=== PATIENT | female | born 1950 | race Caucasian/White ===

== ENCOUNTER 2020-06-29 11:11 | Outpatient (REF) | payer MEDICARE, BC, SELFPAY ==
[2020-06-29 14:11] LABS: MANUAL DIFF FLAG NO
[2020-06-29 14:21] LABS: Basophils Percent Auto 0.3 % (0-2); Eosinophils Absolute Auto 0.1 X10*3/uL (0.0-0.4); Eosinophils Percent Auto 1.3 % (0-4); Hematocrit 42.2 % (37-47); Hemoglobin 14.1 g/dl (12.0-16.0); Imm Gran Abs Auto 0.02 X10*3/uL (0.00-0.03); Imm Gran Pct Auto 0.3 % (0.0-0.4); Lymphocytes Absolute Auto 1.8 X10*3/uL (1.2-4.9); Lymphocytes Percent Auto 29.7 % (20-40); Mean Corpuscular HGB Conc 33.4 g/dl (31.0-35.0); Mean Corpuscular Hemoglobin 33.6 pg (27.0-33.0); Mean Corpuscular Volume 100.5 fL (80-98); Mean Platelet Volume 10.5 fL (9.4-12.3); Monocytes Absolute Auto 0.5 X10*3/uL (0.1-1.2); Monocytes Percent Auto 8.1 % (2-11); Neutrophils Absolute Auto 3.6 X10*3/uL (2.0-8.3); Neutrophils Percent Auto 60.3 % (45-73); Platelet Count 224 X10*3/uL (160-400); Red Cell Distribution Width 11.7 % (11.0-16.0)
[2020-06-29 14:36] LABS: Alanine Aminotransferase 18 U/L (0-31); Albumin Level 4.2 g/dL (3.5-5.0); Alkaline Phosphatase 95 U/L (39-117); Anion Gap 10 (12-20); Aspartate Amino Transferase 16 U/L (5-31); Bilirubin Total 0.5 mg/dL (0.0-1.0); Blood Urea Nitrogen 18 mg/dL (9-16); Carbon Dioxide 32 mmol/L (22-29); Chloride 103 mmol/L (96-108); Cholesterol 210 mg/dL; Estimated Glomerular Filt Rate > 60; Glucose Fasting 87 mg/dL (60-99); HDL Cholesterol 58 mg/dL; LDL Cholesterol Calculated 122 mg/dl; Potassium 4.2 mmol/l (3.3-5.1); Sodium 141 mmol/L (135-145); Total Protein 6.5 g/dL (6.5-8.0); Triglycerides 154 mg/dL
[2020-06-29 14:50] LABS: Vitamin D 25-OH Total 42.1 ng/mL (>30)
== END 2020-06-29 11:12 | disposition home or self-care (01) ==
LOC: HO.10HDL 11:11
PROVIDERS: Visit Provider Internal Medicine
DX: E78.00 Pure hypercholesterolemia, unspecified (principal); I10 Essential (primary) hypertension; M85.80 Other specified disorders of bone density and structure, unspecified site
CPT/HCPCS: 36415; 80053; 80061; 82306; 85025

== ENCOUNTER 2021-02-23 08:54 | Outpatient (REF) | payer MEDICARE, BC, SELFPAY ==
[2021-02-23 10:09] LABS: MANUAL DIFF FLAG NO
[2021-02-23 10:19] LABS: Basophils Percent Auto 0.4 % (0-2); Eosinophils Absolute Auto 0.1 X10*3/uL (0.0-0.4); Eosinophils Percent Auto 1.6 % (0-4); Hematocrit 41.5 % (37-47); Hemoglobin 13.8 g/dl (12.0-16.0); Imm Gran Abs Auto 0.01 X10*3/uL (0.00-0.03); Imm Gran Pct Auto 0.2 % (0.0-0.4); Lymphocytes Percent Auto 36.6 % (20-40); Mean Corpuscular HGB Conc 33.3 g/dl (31.0-35.0); Mean Corpuscular Hemoglobin 33.1 pg (27.0-33.0); Mean Corpuscular Volume 99.5 fL (80-98); Mean Platelet Volume 10.3 fL (9.4-12.3); Monocytes Absolute Auto 0.4 X10*3/uL (0.1-1.2); Monocytes Percent Auto 7.7 % (2-11); Neutrophils Absolute Auto 2.9 X10*3/uL (2.0-8.3); Neutrophils Percent Auto 53.5 % (45-73); Platelet Count 188 X10*3/uL (160-400); Red Blood Count 4.17 X10*6/uL (4.20-5.50); Red Cell Distribution Width 11.7 % (11.0-16.0); White Blood Count 5.5 X10*3/uL (4.8-10.8)
[2021-02-23 10:34] LABS: Alanine Aminotransferase 15 U/L (0-31); Alkaline Phosphatase 97 U/L (39-117); Anion Gap 13 (12-20); Aspartate Amino Transferase 13 U/L (5-31); Bilirubin Total 0.7 mg/dL (0.0-1.0); Blood Urea Nitrogen 19 mg/dL (9-16); Calcium 9.2 mg/dL (8.4-10.2); Carbon Dioxide 26 mmol/L (22-29); Chloride 106 mmol/L (96-108); Estimated Glomerular Filt Rate > 60; Glucose Random 86 mg/dL (60-115); Potassium 4.3 mmol/L (3.3-5.1); Sodium 141 mmol/L (135-145); Total Protein 6.3 g/dL (6.5-8.0)
[2021-02-23 10:50] LABS: Vitamin D 25-OH Total 36.2 ng/mL (>30)
== END 2021-02-23 08:55 | disposition home or self-care (01) ==
LOC: HO.LAB 08:54
PROVIDERS: PCP Internal Medicine; Visit Provider Internal Medicine
DX: I10 Essential (primary) hypertension (principal); E78.00 Pure hypercholesterolemia, unspecified; E55.9 Vitamin D deficiency, unspecified
CPT/HCPCS: 36415; 80053; 82306; 85025

== ENCOUNTER 2021-10-07 08:31 | Outpatient (REF) | payer MEDICARE, BC, SELFPAY ==
[2021-10-07 10:48] LABS: Alanine Aminotransferase 12 U/L (0-31); Alkaline Phosphatase 91 U/L (39-117); Anion Gap 11 (12-20); Aspartate Amino Transferase 14 U/L (5-31); Bilirubin Total 0.5 mg/dL (0.0-1.0); Blood Urea Nitrogen 22 mg/dL (9-16); Calcium 9.4 mg/dL (8.4-10.2); Carbon Dioxide 30 mmol/L (22-29); Chloride 106 mmol/L (96-108); Cholesterol 175 mg/dL; Estimated Glomerular Filt Rate 59; Glucose Fasting 92 mg/dL (60-99); HDL Cholesterol 56 mg/dL; LDL Cholesterol Calculated 96 mg/dl; Potassium 4.5 mmol/L (3.3-5.1); Sodium 142 mmol/L (135-145); Total Protein 6.4 g/dL (6.5-8.0); Triglycerides 118 mg/dL
== END 2021-10-07 08:32 | disposition home or self-care (01) ==
LOC: HO.10HDL 08:31
PROVIDERS: Visit Provider Internal Medicine
DX: I10 Essential (primary) hypertension (principal); E78.00 Pure hypercholesterolemia, unspecified
CPT/HCPCS: 36415; 80053; 80061

== ENCOUNTER 2022-01-01 02:11 | Inpatient (IN) | payer MEDICARE, BC, SELFPAY ==
[2022-01-01] VITALS (10 sets, daily range): BP systolic 105–162; BP diastolic 41–60; PULSE 52–75; RESP 14–22; TEMP 36.6–37.9; O2SAT 92–97; BMI 28.4
--- NOTE | ~2022-01-01 | CT_ITS ---
EXAMINATION: CT ABDOMEN AND PELVIS WITHOUT CONTRAST CLINICAL INFORMATION: 71-year-old female with left-sided flank pain. History of kidney stones. COMPARISON: Abdominal ultrasound November 13, 2014 TECHNIQUE: Multidetector volumetric imaging was performed from the superior aspect of the liver through the pubic symphysis. Sagittal and coronal reformatted images were obtained on the technologist's workstation. This CT examination was performed using dose optimization techniques as appropriate, variously including the following: *Automated exposure control *Adjustment of mA and/or kV according to patient size (this includes techniques or standardized protocols for targeted exams where dose is matched to indication/reason for exam; i.e. extremities or head) *Use of iterative reconstruction technique DLP: 591 mGy-cm FINDINGS: Visualized lung bases demonstrate mild dependent atelectasis. The liver demonstrates normal size, contour and attenuation. An approximately 1 cm gallstone is noted within an otherwise unremarkable appearing gallbladder. The pancreas, spleen and adrenal glands are unremarkable. There is moderate to severe left-sided hydroureteronephrosis secondary to a 9 mm calculus within the distal left ureter. There is asymmetric perinephric stranding of the left kidney. A few other nonobstructing calculi of the left kidney are noted, the largest of these is an approximately 1 cm lower pole calculus which demonstrates an attenuation value of approximately 500 and is located approximately 13 cm from the posterior skin surface. A few nonobstructing calculi are noted within the lower pole of the right kidney, the largest of these measuring approximately 5 mm. A right extrarenal pelvis is again noted. Scarring again noted involving the upper pole of the right kidney. Normal caliber loops of small and large bowel. Moderate colonic diverticulosis without CT evidence to suggest active diverticulitis. Normal appendix. Normal caliber abdominal aorta demonstrating moderate atherosclerotic disease. No gross retroperitoneal lymphadenopathy. The bladder is normal in appearance. Unremarkable CT appearance of the uterus. No gross free pelvic fluid. Moderate diffuse degenerative changes of the spine. Abnormal sclerotic appearance of the right femoral head and proximal portion of the right femur, nonspecific. CT/CT abdomen pelvis wo con IMPRESSION: Moderate to severe left-sided hydroureteronephrosis secondary to a 9 mm calculus within the distal left ureter. Fleischner guidelines were followed.
[2022-01-01 03:55] LABS: Appearance Urine HAZY; Color Urine YELLOW; Glucose Urine UA NEG (NEG); Leukocyte Esterase Urine 2+ (NEG); Nitrite Urine NEG (NEG); Specific Gravity - Urine 1.025 (1.005-1.025); UACC Culture Trigger YES; Urine Blood 2+ (NEG); Urine Ketones NEG (NEG); Urine Protein TRACE MG/DL (NEG-TRACE)
[2022-01-01 04:31] LABS: Bacteria Urine 4+ /LPF; Mucus Urine 2+ /LPF; Squamous Epithelial Cell Urine 1+ /LPF; WBC Urine 50-75 /HPF (0-4)
[2022-01-01 06:24] LABS: Hemoglobin 13.5 g/dl (12.0-16.0); Mean Corpuscular HGB Conc 33.8 g/dl (31.0-35.0); Mean Corpuscular Hemoglobin 32.6 pg (27.0-33.0); Mean Corpuscular Volume 96.6 fL (80.0-98.0); Mean Platelet Volume 9.6 fL (9.4-12.3); Platelet Count 177 X10*3/uL (160-400); Red Blood Count 4.14 X10*6/uL (4.20-5.50); Red Cell Distribution Width 11.6 % (11.0-16.0); White Blood Count 16.9 X10*3/uL (4.8-10.8)
[2022-01-01 06:46] LABS: Alanine Aminotransferase 11 U/L (0-31); Albumin Level 4.2 g/dL (3.5-5.0); Alkaline Phosphatase 109 U/L (39-117); Anion Gap 15 (12-20); Aspartate Amino Transferase 16 U/L (5-31); Bilirubin Total 0.7 mg/dL (0.0-1.0); Blood Urea Nitrogen 14 mg/dL (9-16); Calcium 9.5 mg/dL (8.4-10.2); Carbon Dioxide 21 mmol/L (22-29); Chloride 101 mmol/L (96-108); Creatinine Clr Calc Pharmacy 50.1; Estimated Glomerular Filt Rate > 60; Glucose Random 131 mg/dL (60-115); Potassium 4.3 mmol/L (3.3-5.1); Sodium 133 mmol/L (135-145)
--- NOTE | 2022-01-01 06:58 | ED.ABDPAIN ---
HPI - Abdominal Pain General Chief Complaint: Abdominal Pain Stated Complaint: Kidney Stone Time Seen by Provider: 01/01/22 06:58 Source: patient and family ( spouse) Mode of arrival: ambulatory Limitations: no limitations History of Present Illness HPI narrative: 71 years old female history of kidney stones came in for evaluation of left flank pain. Left flank pain started since yesterday pain is constant described as sharp aching to the left flank area radiates down to the left groin area, pain is severe 10/10, associated with nausea and vomiting but no fever, no dysuria or urinary frequency. patient had similar pain in the past when she had kidney stone many years ago. Patient required surgical intervention for stone removal In the past. Related Data Allergies Allergy/AdvReac Type Severity Reaction Status Date / Time ibuprofen Allergy Unknown Verified 01/09/14 00:00 Review of Systems Review of Systems All other systems are reviewed and are negative Constitutional: Reports as per HPI and Reports no additional constitutional complaints Eyes: Reports as per HPI and Reports no additional eye complaints Reports system reviewed and no additional complaints, except as documented Cardiovascular: Reports as per HPI and Reports no additional cardiovascular complaints Respiratory: Reports as per HPI and Reports no additional respiratory complaints Gastrointestinal: Reports as per HPI and Reports no additional gastrointestinal complaints Genitourinary: Reports no additional female genitourinary complaints Musculoskeletal: Reports no additional musculoskeletal complaints Skin/Breast: Reports system reviewed and no additional complaints, except as docu Psychiatric: Reports no additional psychiatric complaints Endocrine: Reports no additional endocrine complaints Hematologic/Lymphatic: Reports no additional hematologic/lymphatic complaints Allergic/Immunologic: Reports no additional allergic/immunologic complaints Reports system reviewed and no additional complaints, except as documented and Reports Abnormal speech present. [facility] Social History Social History Advance Directives: No Advance Directives Information Provided: No Physical Exam ED Vital Signs: Vital Signs - 24 hr 01/01/22 03:34 01/01/22 06:59 01/01/22 07:48 Temperature 97.8 F Pulse Rate 54 53 Respiratory Rate 22 H 14 16 Blood Pressure 146/47 H 141/60 H Pulse Oximetry 96 96 01/01/22 09:42 01/01/22 10:46 Temperature Pulse Rate 68 Respiratory Rate 16 14 Blood Pressure 139/60 Pulse Oximetry 92 BMI result Body Mass Index 28.4 vital signs have been reviewed as appeared to be correct. Blood pressure normal. Heart rate normal. Respiration rate normal. Temperature normal. Oxygen saturation normal. Appearance: Alert. Oriented X3. No acute distress. Head: Normal external exam. Normocephalic. Atraumatic. No Velasquez signs noted. No raccoon eyes noted Eyes: PERRLA. EOMI. Conjunctiva and sclera normal. Eyelids normal. ENT: TM's Normal. Pharynx normal. Uvula midline. Moist mucous membranes. No trismus noted. No drooling noted. No muffled voice noted. Neck: Normal inspection. Neck supple. FROM. No adenopathy. Thyroid Normal. No meningeal signs. No neck mass noted. CVS: Normal heart rate and rhythm. Heart sound normal. No murmurs noted. Pulses normal throughout. Respiratory: No respiratory distress. Painless inspiration. Breath sounds normal. No wheezes/rales/rhonchi noted. Chest nontender. No accessory muscle usage noted or decreased air movement noted. Abdomen: Soft and nontender. Bowel sounds normal in all 4 quadrants. No distention noted. No organomegaly noted. No visible injury noted. Back: Left CVA tenderness. Full range of motion noted. Skin: Skin warm and dry. Normal skin color. Normal skin turgor. No rashes/lesions/lacerations noted. Extremities: No lower extremity edema. Extremities exhibit normal range of motion. Extremities nontender. Neuro: Oriented X 3. Cranial nerve exam: II-XII are grossly intact No motor deficit. No sensory deficit. Reflexes normal. Course Course Course Narrative: Assessment and plan. 71-year-old female came in with left flank pain, physical exam and CT is consistent with left pyelonephritis and a 9 mm distal ureteric stone, patient met criteria for SIRS but no evidence of severe sepsis or septic shock. Patient received ceftriaxone/ IV fluid / analgesia/consult to Dr. Medina who recommended to admit the patient to the medical service and he will consult as an inpatient. patient incidentally found to be positive for COVID. MDM - Abdominal Pain Medical Records Attestation: I reviewed the patient's medical records. Lab Data Attestation: I reviewed the patient's lab results. Result diagrams: 01/01/22 06:15 01/01/22 06:15 Labs: Lab Results 01/01/22 01/01/22 01/01/22 Range/Units 03:46 06:15 06:15 WBC 16.9 H (4.8-10.8) X10*3/uL RBC 4.14 L (4.20-5.50) X10*6/uL Hgb 13.5 (12.0-16.0) g/dl Hct 40.0 (37.0-47.0) % MCV 96.6 (80.0-98.0) fL MCH 32.6 (27.0-33.0) pg MCHC 33.8 (31.0-35.0) g/dl RDW 11.6 (11.0-16.0) % Plt Count 177 (160-400) X10*3/uL MPV 9.6 (9.4-12.3) fL Absolute Nucleated RBC 0.000 (0.0-0.012) X10*3/uL Nucleated RBC % (auto) 0.0 (0.0-0.2) /100WBC Sodium 133 L (135-145) mmol/L Potassium 4.3 (3.3-5.1) mmol/L Chloride 101 (96-108) mmol/L Carbon Dioxide 21 L (22-29) mmol/L Anion Gap 15 (12-20) BUN 14 (9-16) mg/dL Creatinine 0.86 (0.5-1.4) mg/dL Estim Creat Clear Calc 50.1 Estimated GFR > 60 Random Glucose 131 H (60-115) mg/dL Lactic Acid (0.5-2.0) mmol/L Calcium 9.5 (8.4-10.2) mg/dL Total Bilirubin 0.7 (0.0-1.0) mg/dL AST 16 (5-31) U/L ALT 11 (0-31) U/L Alkaline Phosphatase 109 (39-117) U/L Total Protein 7.0 (6.5-8.0) g/dL Albumin 4.2 (3.5-5.0) g/dL Urine Color YELLOW Urine Appearance HAZY Urine pH 6.0 (5.0-8.0) Ur Specific [place] 1.025 (1.005-1.025) Urine Protein TRACE (NEG-TRACE) MG/DL Urine Glucose (UA) NEG (NEG) MG/DL Urine Ketones NEG (NEG) MG/DL Urine Blood 2+ H (NEG) Urine Nitrite NEG (NEG) Ur Leukocyte Esterase 2+ H (NEG) Urine RBC 5-9 H (0) /HPF Urine WBC 50-75 H (0-4) /HPF Ur Squamous Epith Cells 1+ /LPF Urine Bacteria 4+ /LPF Urine Mucus 2+ /LPF COVID-19 ([facility]) (Negative) COVID-19 Clin Com 01/01/22 01/01/22 Range/Units 09:24 10:50 WBC (4.8-10.8) X10*3/uL RBC (4.20-5.50) X10*6/uL Hgb (12.0-16.0) g/dl Hct (37.0-47.0) % MCV (80.0-98.0) fL MCH (27.0-33.0) pg MCHC (31.0-35.0) g/dl RDW (11.0-16.0) % Plt Count (160-400) X10*3/uL MPV (9.4-12.3) fL Absolute Nucleated RBC (0.0-0.012) X10*3/uL Nucleated RBC % (auto) (0.0-0.2) /100WBC Sodium (135-145) mmol/L Potassium (3.3-5.1) mmol/L Chloride (96-108) mmol/L Carbon Dioxide (22-29) mmol/L Anion Gap (12-20) BUN (9-16) mg/dL Creatinine (0.5-1.4) mg/dL Estim Creat Clear Calc Estimated GFR Random Glucose (60-115) mg/dL Lactic Acid 0.9 (0.5-2.0) mmol/L Calcium (8.4-10.2) mg/dL Total Bilirubin (0.0-1.0) mg/dL AST (5-31) U/L ALT (0-31) U/L Alkaline Phosphatase (39-117) U/L Total Protein (6.5-8.0) g/dL Albumin (3.5-5.0) g/dL Urine Color Urine Appearance Urine pH (5.0-8.0) Ur Specific [place] (1.005-1.025) Urine Protein (NEG-TRACE) MG/DL Urine Glucose (UA) (NEG) MG/DL Urine Ketones (NEG) MG/DL Urine Blood (NEG) Urine Nitrite (NEG) Ur Leukocyte Esterase (NEG) Urine RBC (0) /HPF Urine WBC (0-4) /HPF Ur Squamous Epith Cells /LPF Urine Bacteria /LPF Urine Mucus /LPF COVID-19 ([place]) Positive A (Negative) COVID-19 Clin Com See Note Imaging Data CT scan - abdomen: Attestation: I personally reviewed and interpreted this imaging study as follows: Radiologist's impression: Moderate to severe left-sided hydroureteronephrosis secondary to a 9 mm calculus within the distal left ureter. Discharge Plan Discharge Clinical Impression: Pyelonephritis of left kidney, Calculus of distal left ureter, COVID-19 virus infection Patient Disposition: Admitted As Inpatient
[2022-01-01] MEDS: Morphine Sulfate 2 MG/ML CARTRIDGE IVPUSH ×2 (07:48→14:17)
[2022-01-01] MEDS: 0.9 % Sodium Chloride 1,000 ML 999 ML IV (07:48)
[2022-01-01] MEDS: ondansetron HCL 4 MG/2 ML VIAL IVPUSH ×2 (07:48→14:17)
[2022-01-01 09:39] LABS: Lactic Acid 0.9 mmol/L (0.5-2.0)
[2022-01-01] MEDS: HYDROmorphone HCl 1 MG/ML SYRINGE IVPUSH ×3 (09:42→22:11)
[2022-01-01 11:01] LABS: COVID-19 Test Positive (Negative); IDNOW Serial# 16C4AD1C
[2022-01-01 11:38] LABS: C Reactive Protein 0.71 mg/dL (< or = 0.50); Lactate Dehydrogenase 298 U/L (122-220)
--- NOTE | 2022-01-01 11:52 | PC.NURSE ---
Patient is alert and orientedx3, pleasant and cooperative. Patient is afebrile. VSS. Lugs are clear. Patient denies discomfort with urination, however complains of left flank pain that resembles pain she had in the past d/t kidney stone about 1 year ago. Patient had nausea this morning which resolved. Patient reports last BM 12/31/2021. Pain in left flank 3/10 at present-at tolerable level. Skin is intact. Patient ambulates independently-gait is steady. Patient is NPO at present-awaiting consult with surgeon.
[2022-01-01 11:57] LABS: Ferritin 178 ng/mL (10-250)
[2022-01-01 11:59] LABS: Procalcitonin 0.02 ng/mL
--- NOTE | 2022-01-01 13:46 | P.HPHOSP_ITS ---
History of Present Illness Date of Service: 01/01/22 Chief Complaint: L flank pain Ms Nieves is a 71 year-old woman with nephrolithiasis, hypertension, and hyperlipidemia who presents with the sudden-onset of severe left flank pain radiating to the groin associated with nausea and vomiting that started yesterday morning. She came to the ED and was found to have leukocytosis and tachypnea, along with pyuria, microscopic hematuria, and bacteruria. CT showed [id number] hydroureteronephrosis on the left associated with a 9 mm distal ureteral stone. Lactate was 0.9 and serum creatinine was 0.86. She was given IV morphine, IV hydromorphone, and IV ceftriaxone. She passed a small stone 3 months ago after an episode of left-sided renal colic. Routine pre-admission Covid-19 [facility] was positive. She denies fever, rigors, congestion, sore throat, cough, or dyspnea. No known exposures. She had the 2-dose primary series and 2 boosters of mRNA Covid-19 vaccine. Review of Systems Review of Systems: Yes all other systems are reviewed and are negative [facility] Medical History Dyslipidemia Hypertension Nephrolith Family History (Updated 01/01/22 @ 13:51 by Eliezer Sandy MD) Father Chronic kidney disease Surgical History (Updated 01/01/22 @ 13:50 by Eliezer Sandy MD) History of removal of ureteral stent History of stapedectomy Social History Advance Directives: No Advance Directives Information Provided: No Meds Allergies Allergy/AdvReac Type Severity Reaction Status Date / Time ibuprofen Allergy Unknown Verified 01/09/14 00:00 Active Medications: Current Medications Ceftriaxone Sodium 1 gm/ (Sodium Chloride) 50 mls @ 100 mls/hr IV Q24H [facility] Sodium Chloride (Ns) 1,000 mls @ 100 mls/hr IVCONT .Q10H [facility] Morphine Sulfate (Morphine Sulfate 2 Mg/Ml Cartridge) 2 mg IVPUSH Q2H PRN; Protocol PRN Reason: severe pain Non-Formulary Medication (Simvastatin) 1 tab PO BEDTIME [facility] Pharmacy Consult (Consult Rx Perform Med Rec) 1 each MISCELLANE ONCE PRN PRN Reason: Consult order Home Medications Medication Instructions Recorded Confirmed Last Taken Type losartan 50 mg tablet 1 tab PO BID 01/01/22 01/01/22 Unknown History oxycodone 5 mg tablet 1 tab PO QID PRN 01/01/22 01/01/22 Unknown History simvastatin 20 mg tablet 1 tab PO BEDTIME 01/01/22 01/01/22 Unknown History Physical Exam Vital Signs and Narrative: Vital Signs: Last Vital Signs Temp 97.8 F 01/01/22 03:34 Pulse 68 01/01/22 10:46 Resp 14 01/01/22 10:46 BP 139/60 01/01/22 10:46 Pulse Ox 92 01/01/22 10:46 BMI result Body Mass Index 28.4 Gen: uncomfortable-appearing HEENT: sclera anicteric, moist mucus membranes Neck: supple Lungs: clear to auscultation bilaterally Heart: regular rate and rhythm, no murmurs Abd: soft, non-tender, non-distended : L CVA tenderness Ext: no edema Skin: warm/well-perfused Neuro: alert and oriented x3, no focal findings Psych: appropriate affect Results Labs CBC and Chem 7: 01/01/22 06:15 01/01/22 06:15 Labs: Laboratory Results - last 24 hr 01/01/22 01/01/22 01/01/22 03:46 06:15 06:15 MCV 96.6 MCH 32.6 MCHC 33.8 RDW 11.6 Plt Count 177 MPV 9.6 Absolute Nucleated RBC 0.000 Nucleated RBC % (auto) 0.0 Anion Gap 15 Estim Creat Clear Calc 50.1 Estimated GFR > 60 Random Glucose 131 H Lactic Acid Calcium 9.5 Ferritin 178 Total Bilirubin 0.7 AST 16 ALT 11 Alkaline Phosphatase 109 Lactate Dehydrogenase 298 H C-Reactive Protein 0.71 H Total Protein 7.0 Albumin 4.2 Procalcitonin Urine Color YELLOW Urine Appearance HAZY Urine pH 6.0 Ur Specific [place] 1.025 Urine Protein TRACE Urine Glucose (UA) NEG Urine Ketones NEG Urine Blood 2+ H Urine Nitrite NEG Ur Leukocyte Esterase 2+ H Urine RBC 5-9 H Urine WBC 50-75 H Ur Squamous Epith Cells 1+ Urine Bacteria 4+ Urine Mucus 2+ COVID-19 ([facility]) COVID-19 Clin Com 01/01/22 01/01/22 01/01/22 06:15 09:24 10:50 MCV MCH MCHC RDW Plt Count MPV Absolute Nucleated RBC Nucleated RBC % (auto) Anion Gap Estim Creat Clear Calc Estimated GFR Random Glucose Lactic Acid 0.9 Calcium Ferritin Total Bilirubin AST ALT Alkaline Phosphatase Lactate Dehydrogenase C-Reactive Protein Total Protein Albumin Procalcitonin 0.02 Urine Color Urine Appearance Urine pH Ur Specific [place] Urine Protein Urine Glucose (UA) Urine Ketones Urine Blood Urine Nitrite Ur Leukocyte Esterase Urine RBC Urine WBC Ur Squamous Epith Cells Urine Bacteria Urine Mucus COVID-19 ([place]) Positive A COVID-19 Clin Com See Note Imaging Radiologist's Impressions: Impressions Abdomen/Pelvis CT 01/01/22 09:07 IMPRESSION: Moderate to severe left-sided hydroureteronephrosis secondary to a 9 mm calculus within the distal left ureter. Fleischner guidelines were followed. Assessment and Plan (1) Pyelonephritis of left kidney: Status: Acute (2) Calculus of distal left ureter: Status: Acute (3) COVID-19 virus infection: Status: Acute Plan 71yo F with nephrolithiasis, HTN, and HLD presenting with 1 day of L-sided renal colic and found to have pyelonephritis and hydroureteronephrosis associated with a distal left ureteral calculus. # obstructive ureteral stone # pyelonephritis - admit to M/S, give IV fluid hydration, IV morphine, IV ondansetron, Urology consult, ceftriaxone IV, follow UCx # HTN - hold losartan # HLD - continue statin # Covid-19 infection - incidental, inflammatory markers low, fully vaccinated + boosted - ID consult - isolation precautions # VTE ppx - SCDs # code - full I anticipate that the patient will stay at least 2 midnights in hospital due to the above reasons. It is not reasonable or safe to care for them in a less acute setting. Quality Stroke Does the patient have a stroke diagnosis?: No VTE Prior VTE?: No VTE Risk Level:: Medical - moderate - high VTE Device Contraindication: N/A - Device Ordered VTE Drug Contraindication: N/A - Med Ordered
[2022-01-01] MEDS: 0.9 % Sodium Chloride 1,000 ML 100 ML IVCONT (14:17)
[2022-01-01] MEDS: Enoxaparin Sodium 40 MG/0.4 ML SYRINGE SUBCUT (14:17)
--- NOTE | 2022-01-01 14:28 | PC.NURSE ---
CALLED WITH UPDATE. PT MEDICATED FOR INCREASED LEFT FLANK PAIN. SKIN PWD. NAUSEA RISING BUT NO VOMITING. ABLE TO TRANSFER TO COMMODE INDPENDENTLY.
--- NOTE | 2022-01-01 14:37 | P.CNUR_ITS ---
History of Present Illness Consult details Consult date: 01/01/22 Narrative: Megan is a very pleasant female. Admitted to hospital with left-sided flank pain. Associated elevated white count imaging with distal left ureteric stone and mild hydronephrosis Creatinine 0.7 WBC 18 Discussed imaging results. Stones bilateral. Will need intervention with ureteroscopy and laser lithotripsy. Admitted to Medicine for antibiotics and 24-36 hour Review of Systems Constitutional: Constitutional: Reports as per HPI and Reports no additional constitutional complaints Cardiovascular: Cardiovascular: Reports as per HPI and Reports no additional cardiovascular complaints Respiratory: Respiratory: Reports as per HPI and Reports no additional respiratory complaints Gastrointestinal: Gastrointestinal: Reports as per HPI and Reports no additional gastrointestinal complaints Genitourinary: Genitourinary: Reports as per HPI Musculoskeletal: Musculoskeletal: Reports no additional musculoskeletal compl aints and Reports as per HPI Neurologic: Reports system reviewed and no additional complaints, except as documented and Reports as per HPI PMFSH Past Medical History Medical History Dyslipidemia Hypertension Nephrolith Family History Family History (Updated 01/01/22 @ 13:51 by Eliezer Sandy MD) Father Chronic kidney disease Surgical History Surgical History (Updated 01/01/22 @ 13:50 by Eliezer Sandy MD) History of removal of ureteral stent History of stapedectomy Social History Social History Advance Directives: No Advance Directives Information Provided: No service: No Current occupational status: retired Meds Allergies Allergy/AdvReac Type Severity Reaction Status Date / Time ibuprofen Allergy Unknown Verified 01/09/14 00:00 Active Medications: Current Medications Acetaminophen (Acetaminophen 325 Mg Tablet) 650 mg PO Q6H PRN PRN Reason: Pain, Mild (Pain Scale 1-3) Atorvastatin Calcium (Atorvastatin Calcium 10 Mg Tablet) 10 mg PO BEDTIME [facility] Enoxaparin Sodium (Enoxaparin Sodium 40 Mg/0.4 Ml Syringe) 40 mg SUBCUT Q24H [facility] Last Admin: 01/01/22 14:17 Dose: 40 mg Documented by: Ceftriaxone Sodium 1 gm/ (Sodium Chloride) 50 mls @ 100 mls/hr IV Q24H [facility] Sodium Chloride (Ns) 1,000 mls @ 100 mls/hr IVCONT .Q10H [facility] Last Admin: 01/01/22 14:17 Dose: 100 mls/hr Documented by: Morphine Sulfate (Morphine Sulfate 2 Mg/Ml Cartridge) 2 mg IVPUSH Q2H PRN; Protocol PRN Reason: severe pain Ondansetron HCl (Ondansetron Hcl 4 Mg/2 Ml Vial) 4 mg IVPUSH Q8H PRN PRN Reason: Nausea and Vomiting Last Admin: 01/01/22 14:17 Dose: 4 mg Documented by: Pharmacy Consult (Consult Rx Perform Med Rec) 1 each MISCELLANE ONCE PRN PRN Reason: Consult order Sodium Chloride (0.9 % Sodium Chloride Flush 3 Ml Syringe) 3 ml IVFLUSH QSHIFT [facility] Last Admin: 01/01/22 14:18 Dose: Not Given Documented by: Home Medications Medication Instructions Recorded Confirmed Last Taken Type losartan 50 mg tablet 1 tab PO BID 01/01/22 01/01/22 Unknown History oxycodone 5 mg tablet 1 tab PO QID PRN 01/01/22 01/01/22 Unknown History simvastatin 20 mg tablet 1 tab PO BEDTIME 01/01/22 01/01/22 Unknown History Physical Exam Vital Signs: Vital Signs: Last Vital Signs Temp 99.4 F 01/01/22 13:48 Pulse 75 01/01/22 13:48 Resp 18 01/01/22 13:48 BP 162/57 H 01/01/22 13:48 Pulse Ox 94 01/01/22 13:48 BMI result Body Mass Index 28.4 Const: General: cooperative, healthy appearing, comfortable and no acute distress Orientation/consciousness: patient oriented x3 HEENT: Face and sinus: Yes normal facial exam Mouth: moist mucous membranes Neck: Neck: Yes normal visual inspection, Yes full ROM and Yes trachea midline Chest: Chest palpation & inspection: normal inspection of the chest Resp: Effort & Inspection: normal respiratory effort, able to speak in complete sentences and no respiratory distress GI: Inspection: Yes normal to inspection Back/Spine/Pelvis: Cervical Spine: normal cervical lordosis Thoracic/Lumbar Spine: thoracic and lumbar spine normal to inspection Skin: General skin exam: no rashes or lesions noted Neuro: General: patient oriented x3, tone normal and moves all extremities Extrem: General: Yes normal to inspection and Yes capillary refill normal Results Labs Result diagrams: 01/03/22 04:39 01/03/22 04:39 Labs: Abnormal lab results 01/01/22 01/01/22 01/01/22 Range/Units 03:46 06:15 06:15 WBC 16.9 H (4.8-10.8) X10*3/uL RBC 4.14 L (4.20-5.50) X10*6/uL Sodium 133 L (135-145) mmol/L Carbon Dioxide 21 L (22-29) mmol/L Random Glucose 131 H (60-115) mg/dL Lactate Dehydrogenase 298 H (122-220) U/L C-Reactive Protein 0.71 H (< or = 0.50) mg/dL Urine Blood 2+ H (NEG) Ur Leukocyte Esterase 2+ H (NEG) Urine RBC 5-9 H (0) /HPF Urine WBC 50-75 H (0-4) /HPF COVID-19 ([facility]) (Negative) 01/01/22 Range/Units 10:50 WBC (4.8-10.8) X10*3/uL RBC (4.20-5.50) X10*6/uL Sodium (135-145) mmol/L Carbon Dioxide (22-29) mmol/L Random Glucose (60-115) mg/dL Lactate Dehydrogenase (122-220) U/L C-Reactive Protein (< or = 0.50) mg/dL Urine Blood (NEG) Ur Leukocyte Esterase (NEG) Urine RBC (0) /HPF Urine WBC (0-4) /HPF COVID-19 ([place]) Positive A (Negative) Short CBC 01/01/22 Range/Units 06:15 WBC 16.9 H (4.8-10.8) X10*3/uL Hgb 13.5 (12.0-16.0) g/dl Hct 40.0 (37.0-47.0) % Plt Count 177 (160-400) X10*3/uL BMP 01/01/22 06:15 Sodium 133 L Potassium 4.3 Chloride 101 Carbon Dioxide 21 L BUN 14 Creatinine 0.86 Calcium 9.5 Liver Function 01/01/22 Range/Units 06:15 Total Bilirubin 0.7 (0.0-1.0) mg/dL AST 16 (5-31) U/L ALT 11 (0-31) U/L Alkaline Phosphatase 109 (39-117) U/L Albumin 4.2 (3.5-5.0) g/dL Urine 01/01/22 Range/Units 03:46 Urine Color YELLOW Urine Appearance HAZY Urine pH 6.0 (5.0-8.0) Ur Specific [place] 1.025 (1.005-1.025) Urine Protein TRACE (NEG-TRACE) MG/DL Urine Glucose (UA) NEG (NEG) MG/DL All other labs normal. Assessment and Plan (1) Pyelonephritis of left kidney: Status: Acute (2) Calculus of distal left ureter: Status: Acute Plan Ureteroscopy We discussed the nature of the decision and reasonable alternatives for performing the above surgery. Interventions include chemical dissolution, ESWL, ureteroscopy with laser lithotripsy and stent placement, PCNL. Options such as medical therapy were discussed. The relative uncertainties and benefits related to each alternate procedure were adequately discussed. General surgical risks including, but not limited to, pa in, bleeding, infection, myocardial infarction, pulmonary embolus, deep vein thrombosis and cerebrovascular accident which may result in further hospitalization were discussed. Full disclosure of the procedure as well as all major risks, benefits and complications were discussed including but not limited to damage to the urethra, bladder and kidney infection, damage to the ureter, stent migration or malposition, scarring to the renal pelvis, remnant stone fragments, subsequent stone passage with need for secondary procedures. The overall secondary procedure rate is approximately 10-15%. The success rate of the procedure was discussed. Success of the procedure in the short-term does not necessarily guarantee that long-term success will be maintained. Suitable follow up will need to be maintained. The patient showed understanding of discussion and wishes to proceed with - cystoscopy, retrograde, ureteroscopy, possible lithotripsy/stone basketing and stent on the left side Procedures Date of Service Date of Service: 01/01/22
--- NOTE | 2022-01-01 15:36 | PC.NURSE ---
Patient reports severe pain in left flank 10/10 at present-minimal relief in pain after Morphine at 14:17. Hospitalist updated and will put order for Dilaudid.
[2022-01-01] MEDS: Acetaminophen 325 MG TABLET 650 MG PO (16:52)
--- NOTE | 2022-01-01 17:27 | PC.NURSE ---
Dr. Sandy informed of fever, chills. Per new orders at this time.
--- NOTE | 2022-01-01 19:30 | PC.NURSE ---
Assumed care of pt Pt resting on stretcher NAD
--- NOTE | 2022-01-01 20:47 | PC.NURSE ---
PATIENT WAS ASSISTED UNTO BEDSIDE COMMODE ,PATIENT VOIDED LARGE AMOUNT OF URINE .
[2022-01-01] MEDS: Atorvastatin Calcium 10 MG TABLET PO (21:27)
--- NOTE | 2022-01-01 23:33 | W.PM.IDCN ---
History of Present Illness Data of Consult Service Date: 01/01/22 Requesting physician: Eliezer Sandy Primary Care Provider: Valdemar Slaughter MD HPI Reason for consult: flank pain ,COVID She presents with 7/10 flank pain for 3 days. she has no respiratroy symptoms Her COVID test is positive. Review of Systems Review of Systems: Yes all other systems are reviewed and are negative PMFSH Past Medical History Medical History Dyslipidemia Hypertension Nephrolith Family History Family History (Updated 01/01/22 @ 13:51 by Eliezer Sandy MD) Father Chronic kidney disease Surgical History Surgical History (Updated 01/01/22 @ 13:50 by Eliezer Sandy MD) History of removal of ureteral stent History of stapedectomy Social History Social History Advance Directives: No Advance Directives Information Provided: No Meds Allergies Allergy/AdvReac Type Severity Reaction Status Date / Time ibuprofen Allergy Unknown Verified 01/09/14 00:00 Active Medications: Current Medications Acetaminophen (Acetaminophen 325 Mg Tablet) 650 mg PO Q6H PRN PRN Reason: Pain, Mild (Pain Scale 1-3) Last Admin: 01/01/22 16:52 Dose: 650 mg Documented by: Atorvastatin Calcium (Atorvastatin Calcium 10 Mg Tablet) 10 mg PO BEDTIME NATALIE Last Admin: 01/01/22 21:27 Dose: 10 mg Documented by: Enoxaparin Sodium (Enoxaparin Sodium 40 Mg/0.4 Ml Syringe) 40 mg SUBCUT Q24H NATALIE Last Admin: 01/01/22 14:17 Dose: 40 mg Documented by: Hydromorphone HCl (Hydromorphone Hcl 1 Mg/Ml Syringe) 1 mg IVPUSH Q4H PRN; Protocol PRN Reason: severe pain Last Admin: 01/01/22 22:11 Dose: 1 mg Documented by: Ceftriaxone Sodium 1 gm/ (Sodium Chloride) 50 mls @ 100 mls/hr IV Q24H NATALIE Sodium Chloride (Ns) 1,000 mls @ 100 mls/hr IVCONT .Q10H NATALIE Last Admin: 01/01/22 14:17 Dose: 100 mls/hr Documented by: Ondansetron HCl (Ondansetron Hcl 4 Mg/2 Ml Vial) 4 mg IVPUSH Q8H PRN PRN Reason: Nausea and Vomiting Last Admin: 01/01/22 14:17 Dose: 4 mg Documented by: Pharmacy Consult (Consult Rx Perform Med Rec) 1 each MISCELLANE ONCE PRN PRN Reason: Consult order Sodium Chloride (0.9 % Sodium Chloride Flush 3 Ml Syringe) 3 ml IVFLUSH QSHIFT [facility] Last Admin: 01/01/22 14:18 Dose: Not Given Documented by: Home Medications Medication Instructions Recorded Confirmed Last Taken Type losartan 50 mg tablet 1 tab PO BID 01/01/22 01/01/22 Unknown History oxycodone 5 mg tablet 1 tab PO QID PRN 01/01/22 01/01/22 Unknown History simvastatin 20 mg tablet 1 tab PO BEDTIME 01/01/22 01/01/22 Unknown History Physical Exam Vital Signs: Vital Signs: Last Vital Signs Temp 99.4 F 01/01/22 20:47 Pulse 52 01/01/22 20:47 Resp 16 01/01/22 20:47 BP 111/41 L 01/01/22 20:47 Pulse Ox 97 01/01/22 20:47 BMI result Body Mass Index 28.4 Const: General: cooperative Resp: Effort & Inspection: normal respiratory effort Cardio: Rate: regular rate Rhythm: regular rhythm Skin: General skin exam: no rashes or lesions noted Results Labs CBC & Chem 7: 01/01/22 06:15 01/01/22 06:15 Labs: Short CBC 01/01/22 Range/Units 06:15 WBC 16.9 H (4.8-10.8) X10*3/uL Hgb 13.5 (12.0-16.0) g/dl Hct 40.0 (37.0-47.0) % Plt Count 177 (160-400) X10*3/uL BMP 01/01/22 06:15 Sodium 133 L Potassium 4.3 Chloride 101 Carbon Dioxide 21 L BUN 14 Creatinine 0.86 Calcium 9.5 Liver Function 01/01/22 Range/Units 06:15 Total Bilirubin 0.7 (0.0-1.0) mg/dL AST 16 (5-31) U/L ALT 11 (0-31) U/L Alkaline Phosphatase 109 (39-117) U/L Albumin 4.2 (3.5-5.0) g/dL Urine 01/01/22 Range/Units 03:46 Urine Color YELLOW Urine Appearance HAZY Urine pH 6.0 (5.0-8.0) Ur Specific [place] 1.025 (1.005-1.025) Urine Protein TRACE (NEG-TRACE) MG/DL Urine Glucose (UA) NEG (NEG) MG/DL Assessment and Plan (1) Pyelonephritis of left kidney: Status: Acute Ceftiaxone Await culture,prob 10 d po (2) COVID-19 virus infection: Status: Acute Risk for progression for 3 days Remdesivir
[2022-01-02 00:11] VITALS: PULSE 66; RESP 14; TEMP 37.1; O2SAT 98
[2022-01-02] MEDS: 0.9 % Sodium Chloride Flush 3 ML SYRINGE IVFLUSH (01:06)
[2022-01-02] MEDS: 0.9 % Sodium Chloride 1,000 ML 100 ML IVCONT ×3 (01:06→22:28)
[2022-01-02] MEDS: HYDROmorphone HCl 1 MG/ML SYRINGE IVPUSH ×2 (04:37→09:15)
[2022-01-02 06:09] VITALS: BP 134/55; PULSE 58; RESP 14; TEMP 36.9; O2SAT 98
--- NOTE | 2022-01-02 06:15 | PC.NURSE ---
Pt ambulated to bathroom wth walker Pt tolerated well Pt placed back on stretcher Pt passed swallow screan Tolerated ice water Will continue to monitor
[2022-01-02 07:08] LABS: Hemoglobin 11.7 g/dl (12.0-16.0); Mean Corpuscular HGB Conc 33.4 g/dl (31.0-35.0); Mean Corpuscular Hemoglobin 33.4 pg (27.0-33.0); Mean Platelet Volume 9.9 fL (9.4-12.3); Platelet Count 147 X10*3/uL (160-400)
[2022-01-02 07:57] LABS: Anion Gap 10 (12-20); Blood Urea Nitrogen 13 mg/dL (9-16); Calcium 8.3 mg/dL (8.4-10.2); Carbon Dioxide 24 mmol/L (22-29); Chloride 109 mmol/L (96-108); Creatinine Clr Calc Pharmacy 50.7; Estimated Glomerular Filt Rate > 60; Glucose Random 97 mg/dL (60-115); Sodium 139 mmol/L (135-145)
[2022-01-02] MEDS: Remdesivir 200 MG in 0.9 % Sodium Chloride 210 ML 105 MG IV (09:07)
--- NOTE | 2022-01-02 09:42 | HO.PM.IMPN ---
Subjective Subjective Date of Service: 01/02/22 Interval History: Flank pain controlled. No fever. Desaturated to 88% on RA. No cough or dyspnea. Review of Systems Review of Systems: Yes all other systems are reviewed and are negative Physical Exam Vital Signs: Vital Signs: Last Vital Signs Temp 98.5 F 01/02/22 06:09 Pulse 58 01/02/22 06:09 Resp 14 01/02/22 06:09 BP 134/55 L 01/02/22 06:09 Pulse Ox 98 01/02/22 06:09 BMI result Body Mass Index 28.4 Gen: NAD HEENT: sclera anicteric, moist mucus membranes Neck: supple Lungs: clear to auscultation bilaterally Heart: regular rate and rhythm, no murmurs Abd: soft, non-tender, non-distended : L CVA tenderness Ext: no edema Skin: warm/well-perfused Neuro: alert and oriented x3, no focal findings Psych: appropriate affect Objective Data Active Medications Acetaminophen (Acetaminophen 325 Mg Tablet) 650 mg PO Q6H PRN PRN Reason: Pain, Mild (Pain Scale 1-3) Last Admin: 01/01/22 16:52 Dose: 650 mg Documented by: STEVO Atorvastatin Calcium (Atorvastatin Calcium 10 Mg Tablet) 10 mg PO BEDTIME [facility] Last Admin: 01/01/22 21:27 Dose: 10 mg Documented by: KIMBERLY Dexamethasone Sodium Phosphate (Dexamethasone Sod Phosphate 4 Mg/Ml Vial) 6 mg IVPUSH DAILY [facility] Stop: 01/11/22 09:01 Enoxaparin Sodium (Enoxaparin Sodium 40 Mg/0.4 Ml Syringe) 40 mg SUBCUT Q24H [facility] Last Admin: 01/01/22 14:17 Dose: 40 mg Documented by: ELADIO Hydromorphone HCl (Hydromorphone Hcl 1 Mg/Ml Syringe) 1 mg IVPUSH Q4H PRN; Protocol PRN Reason: severe pain Last Admin: 01/02/22 09:15 Dose: 1 mg Documented by: MELINDA Ceftriaxone Sodium 1 gm/ (Sodium Chloride) 50 mls @ 100 mls/hr IV Q24H [facility] Sodium Chloride (Ns) 1,000 mls @ 100 mls/hr IVCONT .Q10H [facility] Last Admin: 01/02/22 01:06 Dose: 100 mls/hr Documented by: KIMBERLY Remdesivir 200 mg/ Sodium (Chloride) 210 mls @ 105 mls/hr IV ONCE ONE Stop: 01/02/22 10:59 Last Admin: 01/02/22 09:07 Dose: 105 mls/hr Documented by: MELINDA Remdesivir 100 mg/ Sodium (Chloride) 230 mls @ 115 mls/hr IV Q24H [facility]ALIE Stop: 01/04/22 10:59 Ondansetron HCl (Ondansetron Hcl 4 Mg/2 Ml Vial) 4 mg IVPUSH Q8H PRN PRN Reason: Nausea and Vomiting Last Admin: 01/01/22 14:17 Dose: 4 mg Documented by: ELADIO Pharmacy Consult (Consult Rx Perform Med Rec) 1 each MISCELLANE ONCE PRN PRN Reason: Consult order Sodium Chloride (0.9 % Sodium Chloride Flush 3 Ml Syringe) 3 ml IVFLUSH QSHIFT NATALIE Last Admin: 01/02/22 01:06 Dose: 3 ml Documented by: KIMBERLY Labs CBC & Chem 7: 01/02/22 06:13 01/02/22 06:13 Labs: Laboratory Results - last 24 hr 01/01/22 01/01/22 01/01/22 06:15 06:15 10:50 MCV MCH MCHC RDW Plt Count MPV Absolute Nucleated RBC Nucleated RBC % (auto) Anion Gap Estim Creat Clear Calc Estimated GFR Random Glucose Calcium Ferritin 178 Lactate Dehydrogenase 298 H C-Reactive Protein 0.71 H Procalcitonin 0.02 COVID-19 ([place]) Positive A COVID-19 Clin Com See Note 01/02/22 01/02/22 06:13 06:13 MCV 100.0 H MCH 33.4 H MCHC 33.4 RDW 12.0 Plt Count 147 L MPV 9.9 Absolute Nucleated RBC 0.000 Nucleated RBC % (auto) 0.0 Anion Gap 10 L Estim Creat Clear Calc 50.7 Estimated GFR > 60 Random Glucose 97 Calcium 8.3 L D Ferritin Lactate Dehydrogenase C-Reactive Protein Procalcitonin COVID-19 ([place]) COVID-19 Clin Com Microbiology Microbiology Results: Microbiology 01/01/22 09:24 Blood Culture - Preliminary Blood - Venous Prelim: GNR Gram Stain only Assessment and Plan (1) COVID-19 virus infection: Status: Acute (2) Calculus of distal left ureter: Status: Acute (3) Pyelonephritis of left kidney: Status: Acute (4) Acute respiratory failure with hypoxia: Status: Acute Plan hospital d#2 71yo F with nephrolithiasis, HTN, and HLD presenting with 1 day of L-sided renal colic and found to have pyelonephritis and hydroureteronephrosis associated with a distal left ureteral calculus. incidentally positive for Covid-19 but then developed hypoxia # obstructive ureteral stone # pyelonephritis - continue IV fluid hydration, IV morphine, IV ondansetron, IV ceftriaxone - follow UCx - Urology consulted, plan OR tomorrow # Covid-19 infection - incidental, inflammatory markers low, fully vaccinated + boosted, but now hypoxic - ID consulted, will give remdesivir x3d - start dexamethasone day 08/30 given hypoxia - isolation precautions # acute hypoxic respiratory failure - O2 supplement, wean as tolerated # HTN - hold losartan # HLD - continue statin # VTE ppx - LMWH Quality Stroke Does the patient have a stroke diagnosis?: No VTE Prior VTE?: No VTE Risk Level:: Medical - moderate - high VTE Device Contraindication: N/A - Device Ordered VTE Drug Contraindication: N/A - Med Ordered
[2022-01-02] MEDS: dexAMETHasone sod phosphate 4 MG/ML VIAL 6 MG IVPUSH (09:53)
[2022-01-02] MEDS: cefTRIAXone sodium 1 GM in 0.9 % Sodium Chloride 50 ML IV (11:48)
[2022-01-02] MEDS: Enoxaparin Sodium 40 MG/0.4 ML SYRINGE SUBCUT (17:05)
[2022-01-02] MEDS: Atorvastatin Calcium 10 MG TABLET PO (22:29)
[2022-01-03] VITALS (11 sets, daily range): BP systolic 143–194; BP diastolic 53–78; PULSE 45–77; RESP 14–18; TEMP 36.4–37.1; O2SAT 93–100; BMI 29.5
[2022-01-03 05:15] LABS: Hematocrit 34.8 % (37.0-47.0); Hemoglobin 11.7 g/dl (12.0-16.0); Mean Corpuscular HGB Conc 33.6 g/dl (31.0-35.0); Mean Corpuscular Hemoglobin 33.2 pg (27.0-33.0); Mean Corpuscular Volume 98.9 fL (80.0-98.0); Mean Platelet Volume 9.9 fL (9.4-12.3); Platelet Count 153 X10*3/uL (160-400); Red Blood Count 3.52 X10*6/uL (4.20-5.50); Red Cell Distribution Width 11.9 % (11.0-16.0); White Blood Count 10.8 X10*3/uL (4.8-10.8)
[2022-01-03 05:34] LABS: Alanine Aminotransferase 16 U/L (0-31); Alkaline Phosphatase 85 U/L (39-117); Anion Gap 11 (12-20); Aspartate Amino Transferase 17 U/L (5-31); Bilirubin Total 0.3 mg/dL (0.0-1.0); Blood Urea Nitrogen 17 mg/dL (9-16); C Reactive Protein 11.12 mg/dL (< or = 0.50); Calcium 8.5 mg/dL (8.4-10.2); Carbon Dioxide 24 mmol/L (22-29); Chloride 111 mmol/L (96-108); Creatinine Clr Calc Pharmacy 55.9; Estimated Glomerular Filt Rate > 60; Glucose Random 100 mg/dL (60-115); Potassium 4.1 mmol/L (3.3-5.1); Sodium 142 mmol/L (135-145); Total Protein 5.1 g/dL (6.5-8.0)
[2022-01-03] MEDS: dexAMETHasone sod phosphate 4 MG/ML VIAL 6 MG IVPUSH (09:29)
[2022-01-03] MEDS: cefTRIAXone sodium 1 GM in 0.9 % Sodium Chloride 50 ML IV (09:30)
[2022-01-03] MEDS: 0.9 % Sodium Chloride 1,000 ML 100 ML IVCONT (09:30)
[2022-01-03] MEDS: 0.9 % Sodium Chloride Flush 3 ML SYRINGE IVFLUSH ×2 (09:39→21:17)
[2022-01-03] MEDS: Remdesivir 100 MG in 0.9 % Sodium Chloride 230 ML 115 MG IV (10:15)
--- NOTE | 2022-01-03 12:49 | PC.NURSE ---
report given sss plan to go to surgery around 1600
--- NOTE | 2022-01-03 13:44 | MHC.CM.PN ---
Addendum entered by Megan Aly 01/03/22 13:49: Re: transportation: pt would not be elibible for [facility] shuttle d/t + COVID finding. ? BLS if O2 is needed. CM to follow. Original Note: Met with pt to discuss d/c planning; pt resides with spouse, is independent with all care needs and has no services or DME. Demographic information verified: HCP copy requested: IMM in chart, [facility] x 4. Pt states her spouse may be able to transport her home but if not, she will require [facility] shuttle (lives in [place]). CM to follow for finalization of d/c needs.
--- NOTE | 2022-01-03 14:56 | HO.PM.IMPN ---
Subjective Subjective Date of Service: 01/03/22 Interval History: No cough or dyspnea. Weaned off O2 this AM. Flank pain controlled, awaiting operative intervention. Physical Exam Vital Signs: Vital Signs: Last Vital Signs Temp 98.0 F 01/03/22 06:06 Pulse 61 01/03/22 14:05 Resp 18 01/03/22 14:05 BP 143/56 H 01/03/22 14:05 Pulse Ox 98 01/03/22 14:05 BMI result Body Mass Index 28.4 Gen: NAD HEENT: sclera anicteric, moist mucus membranes Neck: supple Lungs: clear to auscultation bilaterally Heart: regular rate and rhythm, no murmurs Abd: soft, non-tender, non-distended : L CVA tenderness Ext: no edema Skin: warm/well-perfused Neuro: alert and oriented x3, no focal findings Psych: appropriate affect Objective Data Active Medications Acetaminophen (Acetaminophen 325 Mg Tablet) 650 mg PO Q6H PRN PRN Reason: Pain, Mild (Pain Scale 1-3) Last Admin: 01/01/22 16:52 Dose: 650 mg Documented by: STEVO Atorvastatin Calcium (Atorvastatin Calcium 10 Mg Tablet) 10 mg PO BEDTIME [facility] Last Admin: 01/02/22 22:29 Dose: 10 mg Documented by: CATHERINE Dexamethasone Sodium Phosphate (Dexamethasone Sod Phosphate 4 Mg/Ml Vial) 6 mg IVPUSH DAILY [facility]IE Stop: 01/11/22 09:01 Last Admin: 01/03/22 09:29 Dose: 6 mg Documented by: JUAN PABLO Enoxaparin Sodium (Enoxaparin Sodium 40 Mg/0.4 Ml Syringe) 40 mg SUBCUT Q24H [facility] Last Admin: 01/02/22 17:05 Dose: 40 mg Documented by: MELINDA Hydromorphone HCl (Hydromorphone Hcl 1 Mg/Ml Syringe) 1 mg IVPUSH Q4H PRN; Protocol PRN Reason: severe pain Last Admin: 01/02/22 09:15 Dose: 1 mg Documented by: MELINDA Ceftriaxone Sodium 1 gm/ (Sodium Chloride) 50 mls @ 100 mls/hr IV Q24H [facility] Last Infusion: 01/03/22 10:15 Dose: 0 mls/hr Documented by: JUAN PABLO Sodium Chloride (Ns) 1,000 mls @ 100 mls/hr IVCONT .Q10H [facility] Last Admin: 01/03/22 09:30 Dose: 100 mls/hr Documented by: JUAN PABLO Remdesivir 100 mg/ Sodium (Chloride) 230 mls @ 115 mls/hr IV Q24H [facility] Stop: 01/04/22 10:59 Last Admin: 01/03/22 10:15 Dose: 115 mls/hr Documented by: JUAN PABLO Remdesivir 100 mg/ Sodium (Chloride) 230 mls @ 115 mls/hr IV Q24H [facility] Stop: 01/06/22 10:59 Ondansetron HCl (Ondansetron Hcl 4 Mg/2 Ml Vial) 4 mg IVPUSH Q8H PRN PRN Reason: Nausea and Vomiting Last Admin: 01/01/22 14:17 Dose: 4 mg Documented by: ELADIO Pharmacy Consult (Consult Rx Perform Med Rec) 1 each MISCELLANE ONCE PRN PRN Reason: Consult order Sodium Chloride (0.9 % Sodium Chloride Flush 3 Ml Syringe) 3 ml IVFLUSH QSHIFT [facility] Last Admin: 01/03/22 09:39 Dose: 3 ml Documented by: JUAN PABLO Labs CBC & Chem 7: 01/03/22 04:39 01/03/22 04:39 Labs: Laboratory Results - last 24 hr 01/03/22 01/03/22 04:39 04:39 MCV 98.9 H MCH 33.2 H MCHC 33.6 RDW 11.9 Plt Count 153 L MPV 9.9 Absolute Nucleated RBC 0.000 Nucleated RBC % (auto) 0.0 Anion Gap 11 L Estim Creat Clear Calc 55.9 Estimated GFR > 60 Random Glucose 100 Calcium 8.5 Total Bilirubin 0.3 AST 17 ALT 16 Alkaline Phosphatase 85 D C-Reactive Protein 11.12 H Total Protein 5.1 L D Albumin 3.0 L D Microbiology Microbiology Results: Microbiology 01/01/22 09:24 Blood Culture - Preliminary Blood - Venous No growth after 48 hours. 01/01/22 09:24 Blood Culture - Preliminary Blood - Venous Gram negative nia Assessment and Plan (1) COVID-19 virus infection: Status: Acute (2) Calculus of distal left ureter: Status: Acute (3) Pyelonephritis of left kidney: Status: Acute (4) Acute respiratory failure with hypoxia: Status: Acute Plan hospital d#3 71yo F with nephrolithiasis, HTN, and HLD presenting with 1 day of L-sided renal colic and found to have pyelonephritis and hydroureteronephrosis associated with a distal left ureteral calculus. incidentally positive for Covid-19 but then developed hypoxia # obstructive ureteral stone # pyelonephritis - continue IV fluid hydration, IV morphine, IV ondansetron, IV ceftriaxone - follow UCx- growing GNR - Urology consulted, plan OR today # Covid-19 infection - incidental, fully vaccinated + boosted - ID consulted, started remdesivir and now on d#3/5 - became hypoxic on hospital d#2, started dexamethasone and now on d#2/10 - CRP worsening; trend - isolation precautions # acute hypoxic respiratory failure - weaned off O2 # HTN - hold losartan # HLD - continue statin # VTE ppx - LMWH In my clinical judgment, the patient requires continued hospitalization for the following reasons: IV ABX, operative intervention Quality Stroke Does the patient have a stroke diagnosis?: No VTE Prior VTE?: No VTE Risk Level:: Medical - moderate - high VTE Device Contraindication: N/A - Device Ordered VTE Drug Contraindication: N/A - Med Ordered
[2022-01-03] MEDS: Enoxaparin Sodium 40 MG/0.4 ML SYRINGE SUBCUT (16:09)
--- NOTE | 2022-01-03 18:58 | P.CONAN_ITS ---
[facility] Active Problems Active Problems: All Active Problems (Updated 01/02/22 @ 09:44 by Eliezer Sandy MD) Acute respiratory failure with hypoxia (Acute) Pyelonephritis of left kidney (Acute) Calculus of distal left ureter (Acute) COVID-19 virus infection (Acute) Past Medical History Medical History Dyslipidemia Hypertension Nephrolith Family History Family History (Updated 01/01/22 @ 13:51 by Eliezer Sandy MD) Father Chronic kidney disease Family history of problems with anesthesia: No Surgical History Surgical History (Updated 01/01/22 @ 13:50 by Eliezer Sandy MD) History of removal of ureteral stent History of stapedectomy History of Problems with Anesthesia: No Social History Social History Advance Directives: No Advance Directives Information Provided: No service: No Current occupational status: retired Meds Allergies Allergy/AdvReac Type Severity Reaction Status Date / Time ibuprofen Allergy Unknown Verified 01/09/14 00:00 Active Medications: Current Medications Acetaminophen (Acetaminophen 325 Mg Tablet) 650 mg PO Q6H PRN PRN Reason: Pain, Mild (Pain Scale 1-3) Last Admin: 01/01/22 16:52 Dose: 650 mg Documented by: Atorvastatin Calcium (Atorvastatin Calcium 10 Mg Tablet) 10 mg PO BEDTIME [facility] Last Admin: 01/02/22 22:29 Dose: 10 mg Documented by: Dexamethasone Sodium Phosphate (Dexamethasone Sod Phosphate 4 Mg/Ml Vial) 6 mg IVPUSH DAILY [facility] Stop: 01/11/22 09:01 Last Admin: 01/03/22 09:29 Dose: 6 mg Documented by: Enoxaparin Sodium (Enoxaparin Sodium 40 Mg/0.4 Ml Syringe) 40 mg SUBCUT Q24H S Last Admin: 01/03/22 16:09 Dose: 40 mg Documented by: Hydromorphone HCl (Hydromorphone Hcl 1 Mg/Ml Syringe) 1 mg IVPUSH Q4H PRN; Protocol PRN Reason: severe pain Last Admin: 01/02/22 09:15 Dose: 1 mg Documented by: Ceftriaxone Sodium 1 gm/ (Sodium Chloride) 50 mls @ 100 mls/hr IV Q24H [facility] Last Infusion: 01/03/22 10:15 Dose: Infused Documented by: Sodium Chloride (Ns) 1,000 mls @ 100 mls/hr IVCONT .Q10H [facility] Last Admin: 01/03/22 18:57 Dose: Not Given Documented by: Remdesivir 100 mg/ Sodium (Chloride) 230 mls @ 115 mls/hr IV Q24H [facility] Stop: 01/04/22 10:59 Last Infusion: 01/03/22 17:52 Dose: Infused Documented by: Remdesivir 100 mg/ Sodium (Chloride) 230 mls @ 115 mls/hr IV Q24H [facility] Stop: 01/06/22 10:59 Ondansetron HCl (Ondansetron Hcl 4 Mg/2 Ml Vial) 4 mg IVPUSH Q8H PRN PRN Reason: Nausea and Vomiting Last Admin: 01/01/22 14:17 Dose: 4 mg Documented by: Pharmacy Consult (Consult Rx Perform Med Rec) 1 each MISCELLANE ONCE PRN PRN Reason: Consult order Sodium Chloride (0.9 % Sodium Chloride Flush 3 Ml Syringe) 3 ml IVFLUSH QSHIFT [facility] Last Admin: 01/03/22 17:52 Dose: Not Given Documented by: Home Medications Medication Instructions Recorded Confirmed Last Taken Type losartan 50 mg tablet 1 tab PO BID 01/01/22 01/01/22 Unknown History oxycodone 5 mg tablet 1 tab PO QID PRN 01/01/22 01/01/22 Unknown History simvastatin 20 mg tablet 1 tab PO BEDTIME 01/01/22 01/01/22 Unknown History Exam Exam Date and Time: January 03, 2022 185 Height,Weight and Vital Signs: Height 5 ft Weight 66 kg Last Vital Signs Temp 97.8 F 01/03/22 16:00 Pulse 69 01/03/22 16:00 Resp 16 01/03/22 16:00 BP 171/70 H 01/03/22 16:00 Pulse Ox 95 01/03/22 16:00 Pertinent Lab Results Pertinent Lab Results: Laboratory Tests 01/01/22 01/01/22 01/01/22 03:46 06:15 06:15 WBC 16.9 H RBC 4.14 L Hgb 13.5 Hct 40.0 MCV 96.6 MCH 32.6 MCHC 33.8 RDW 11.6 Plt Count 177 MPV 9.6 Absolute Nucleated RBC 0.000 Nucleated RBC % (auto) 0.0 Sodium 133 L Potassium 4.3 Chloride 101 Carbon Dioxide 21 L Anion Gap 15 BUN 14 Creatinine 0.86 Estim Creat Clear Calc 50.1 Estimated GFR > 60 Random Glucose 131 H Lactic Acid Calcium 9.5 Ferritin 178 Total Bilirubin 0.7 AST 16 ALT 11 Alkaline Phosphatase 109 Lactate Dehydrogenase 298 H C-Reactive Protein 0.71 H Total Protein 7.0 Albumin 4.2 Procalcitonin Urine Color YELLOW Urine Appearance HAZY Urine pH 6.0 Ur Specific [place] 1.025 Urine Protein TRACE Urine Glucose (UA) NEG Urine Ketones NEG Urine Blood 2+ H Urine Nitrite NEG Ur Leukocyte Esterase 2+ H Urine RBC 5-9 H Urine WBC 50-75 H Ur Squamous Epith Cells 1+ Urine Bacteria 4+ Urine Mucus 2+ COVID-19 (GERMAN) [employer] 01/01/22 01/01/22 01/01/22 06:15 09:24 10:50 WBC RBC Hgb Hct MCV MCH MCHC RDW Plt Count MPV Absolute Nucleated RBC Nucleated RBC % (auto) Sodium Potassium Chloride Carbon Dioxide Anion Gap BUN Creatinine Estim Creat Clear Calc Estimated GFR Random Glucose Lactic Acid 0.9 Calcium Ferritin Total Bilirubin AST ALT Alkaline Phosphatase Lactate Dehydrogenase C-Reactive Protein Total Protein Albumin Procalcitonin 0.02 Urine Color Urine Appearance Urine pH Ur Specific [place] Urine Protein Urine Glucose (UA) Urine Ketones Urine Blood Urine Nitrite Ur Leukocyte Esterase Urine RBC Urine WBC Ur Squamous Epith Cells Urine Bacteria Urine Mucus COVID-19 ([place]) Positive A COVID-19 [employer] See Note 01/02/22 01/02/22 01/03/22 06:13 06:13 04:39 WBC 10.0 10.8 RBC 3.50 L 3.52 L Hgb 11.7 L 11.7 L Hct 35.0 L 34.8 L MCV 100.0 H 98.9 H MCH 33.4 H 33.2 H MCHC 33.4 33.6 RDW 12.0 11.9 Plt Count 147 L 153 L MPV 9.9 9.9 Absolute Nucleated RBC 0.000 0.000 Nucleated RBC % (auto) 0.0 0.0 Sodium 139 Potassium 4.0 Chloride 109 H Carbon Dioxide 24 Anion Gap 10 L BUN 13 Creatinine 0.85 Estim Creat Clear Calc 50.7 Estimated GFR > 60 Random Glucose 97 Lactic Acid Calcium 8.3 L D Ferritin Total Bilirubin AST ALT Alkaline Phosphatase Lactate Dehydrogenase C-Reactive Protein Total Protein Albumin Procalcitonin Urine Color Urine Appearance Urine pH Ur Specific [place] Urine Protein Urine Glucose (UA) Urine Ketones Urine Blood Urine Nitrite Ur Leukocyte Esterase Urine RBC Urine WBC Ur Squamous Epith Cells Urine Bacteria Urine Mucus COVID-19 ([place]) COVID-19 [employer] 01/03/22 04:39 WBC RBC Hgb Hct MCV MCH MCHC RDW Plt Count MPV Absolute Nucleated RBC Nucleated RBC % (auto) Sodium 142 Potassium 4.1 Chloride 111 H Carbon Dioxide 24 Anion Gap 11 L BUN 17 H Creatinine 0.77 Estim Creat Clear Calc 55.9 Estimated GFR > 60 Random Glucose 100 Lactic Acid Calcium 8.5 Ferritin Total Bilirubin 0.3 AST 17 ALT 16 Alkaline Phosphatase 85 D Lactate Dehydrogenase C-Reactive Protein 11.12 H Total Protein 5.1 L D Albumin 3.0 L D Procalcitonin Urine Color Urine Appearance Urine pH Ur Specific [place] Urine Protein Urine Glucose (UA) Urine Ketones Urine Blood Urine Nitrite Ur Leukocyte Esterase Urine RBC Urine WBC Ur Squamous Epith Cells Urine Bacteria Urine Mucus COVID-19 (GERMAN) COVID-19 Clin Com Airway Mallampati Class: II TM Dist: >3cm Neck ROM: Full Assessment and Plan Assessment Anesthesia Assessment: Anesthesia Plan Discussed and Chart Reviewed Final Anesthetic Review Family History of Problems with Anesthesia: No History of Problems with Anesthesia: No NPO: Yes ASA Class: III Final Preanesthetic Review: Meds/Allgs Chart Reviewed, Consent Obtained/Reviewed and Anes Risks/Benef Reviewed Patient Risk: Intermediate Procedure Risk: Intermediate Anesthetic Plan Anesthetic Plan: GA Disposition: Standard PACU
--- NOTE | 2022-01-03 20:03 | W.PM.OPN ---
Operative Note Operative Note Date of Service: 01/03/22 Narrative: PreOperative Diagnosis: left distal ureteric stone Post Operative Diagnosis: left distal ureteric stone Procedure: - cystoscopy, left retrograde - left dilatation of ureteric orifice under fluoroscopy - left ureteroscopy, laser lithotripsy, stone basketing - left stent placement Surgeon: Dr Patric Medina Anesthesia: General Indications for procedure: left distal ureteric stone with pyelonephritis Procedure: After informed consent was verified patient was brought to the operating placed in supine position. Anesthesia was administered per protocol. Patient was placed in modified dorsal lithotomy position and prepped and draped in a sterile fashion. Safety pause time-out and side of surgery confirmed. Antibiotics confirmed. A 22 [place] cystoscope was inserted per urethra. Bladder was normal in its entirety. Both ureteric orifices were in normal position. The left ureteric orifice was cannulated and a retrograde examination was performed. filling defects seen in left distal ureter with mild hydroureteronephrosis proximally . A Sensor guidewire was placed up to the level of the renal pelvis under fluoroscopy. The rigid cystoscope was removed. The semi rigid ureteral scope was placed alongside the Sensor guidewire. stone was encountered in the distal ureter. Using the holmium laser and a 360 micron fiber the stone was broken into small pieces. Multiple passes were then made with a flat wire basket. Stone sump was collected and will be sent for analysis. The distal ureter contained no fragments a completion of removal. A 6 [place] by Twenty-four cm double-J stent was placed into the renal pelvis and bladder under a combination of fluoroscopy and direct visualization. The bladder was emptied. The patient tolerated the procedure well and was extubated in the operating room, and transferred in stable condition to the recovery area. Pathology: stones Drains: 6 [place] by 24 cm double-J stent
--- NOTE | 2022-01-03 20:07 | PC.NURSE ---
7:40 PM. pt left to OR
[2022-01-03] MEDS: Atorvastatin Calcium 10 MG TABLET PO (21:17)
[2022-01-03] MEDS: Acetaminophen 325 MG TABLET 650 MG PO (21:20)
[2022-01-03] MEDS: Phenazopyridine HCL 100 MG TABLET PO (21:21)
--- NOTE | 2022-01-04 00:54 | ECG_ITS ---
Test Reason : CP Blood Pressure : / mmHG Vent. Rate : 043 BPM Atrial Rate : 043 BPM P-R Int : 130 ms QRS Dur : 090 ms QT Int : 474 ms P-R-T Axes : -19 -20 029 degrees QTc Int : 400 ms Marked sinus bradycardia Low voltage QRS Cannot rule out Anterior infarct , age undetermined Abnormal ECG No previous ECGs available Referred By: Jesse Yusuf Electronically Signed By:SPIKE QUINTANILLA
--- NOTE | 2022-01-04 01:17 | PC.NURSE ---
Patient sinus bardycardia on monitor dipping as low as 38. Overnight hospitalist notified and asked for EKG to be done along with pacer pads to be placed.
[2022-01-04] MEDS: 0.9 % Sodium Chloride 1,000 ML 100 ML IVCONT ×3 (02:44→20:37)
[2022-01-04 03:06] VITALS: BP 177/70; PULSE 49; RESP 18; TEMP 36.3; O2SAT 100
--- NOTE | 2022-01-04 06:52 | HO.POSTANES ---
Post Anesthesia Evaluation Post Anesthesia Evaluation Vital Signs: Vital Signs Temp Pulse Resp BP Pulse Ox 01/04/22 03:06 97.4 F 49 L 18 177/70 H 100 01/03/22 23:43 97.5 F 45 L 15 147/61 H 99 01/03/22 20:56 98.7 F 59 14 194/70 H 100 01/03/22 20:41 66 18 150/60 H 97 01/03/22 20:26 75 18 161/68 H 95 01/03/22 20:21 77 18 154/73 H 94 01/03/22 20:16 77 18 150/69 H 94 01/03/22 20:11 98.6 F 77 18 171/78 H 93 Anesthesia: General Mental Status: Awake Pain Control: Satisfactory Nausea/Vomiting: None Hydration: Adequate Anesthesia-Related Issues: No Anes. Related Issues
[2022-01-04 07:25] LABS: Hematocrit 36.4 % (37.0-47.0); Hemoglobin 12.2 g/dl (12.0-16.0); Mean Corpuscular HGB Conc 33.5 g/dl (31.0-35.0); Mean Corpuscular Hemoglobin 32.9 pg (27.0-33.0); Mean Corpuscular Volume 98.1 fL (80.0-98.0); Mean Platelet Volume 10.1 fL (9.4-12.3); Platelet Count 190 X10*3/uL (160-400); Red Blood Count 3.71 X10*6/uL (4.20-5.50); Red Cell Distribution Width 11.7 % (11.0-16.0); White Blood Count 9.1 X10*3/uL (4.8-10.8)
[2022-01-04 07:50] LABS: Alanine Aminotransferase 11 U/L (0-31); Albumin Level 2.9 g/dL (3.5-5.0); Alkaline Phosphatase 77 U/L (39-117); Anion Gap 13 (12-20); Aspartate Amino Transferase 13 U/L (5-31); Bilirubin Total 0.3 mg/dL (0.0-1.0); Blood Urea Nitrogen 20 mg/dL (9-16); Calcium 8.6 mg/dL (8.4-10.2); Carbon Dioxide 23 mmol/L (22-29); Chloride 110 mmol/L (96-108); Creatinine Clr Calc Pharmacy 57.7; Estimated Glomerular Filt Rate > 60; Glucose Random 116 mg/dL (60-115); Potassium 4.6 mmol/L (3.3-5.1); Sodium 141 mmol/L (135-145); Total Protein 5.2 g/dL (6.5-8.0)
[2022-01-04 08:00] VITALS: BP 110/59; BP 161/79; BP 164/58; PULSE 51; PULSE 59; PULSE 78; RESP 17; RESP 18; RESP 19; TEMP 36.4; TEMP 36.7; TEMP 36.9; O2SAT 100; O2SAT 95
[2022-01-04] MEDS: Remdesivir 100 MG in 0.9 % Sodium Chloride 230 ML 115 MG IV (08:57)
[2022-01-04] MEDS: dexAMETHasone sod phosphate 4 MG/ML VIAL 6 MG IVPUSH (08:57)
[2022-01-04] MEDS: 0.9 % Sodium Chloride Flush 3 ML SYRINGE IVFLUSH ×2 (08:57→20:34)
[2022-01-04] MEDS: cefTRIAXone sodium 1 GM in 0.9 % Sodium Chloride 50 ML IV (11:10)
[2022-01-04 12:00] VITALS: BP 178/72; PULSE 62; RESP 19; TEMP 36.7; O2SAT 100
[2022-01-04] MEDS: Enoxaparin Sodium 40 MG/0.4 ML SYRINGE SUBCUT (14:49)
--- NOTE | 2022-01-04 15:23 | HO.PM.IMPN ---
Subjective Subjective Date of Service: 01/04/22 Interval History: No acute issues overnight; feels well after stenting Review of Systems Denies fever chills Denies chest pain Denies shortness of breath Denies nausea vomiting diarrhea Physical Exam Vital Signs: Vital Signs: Last Vital Signs Temp 98.0 F 01/04/22 12:00 Pulse 62 01/04/22 12:00 Resp 19 01/04/22 12:00 BP 178/72 H 01/04/22 12:00 Pulse Ox 100 01/04/22 12:00 BMI result Body Mass Index 29.5 Const: Other: Awake alert oriented x3 no acute distress Resp: Other: Clear to auscultation bilaterally no rales rhonchi or wheezes Cardio: Other: No S4; positive S1-S2; no S3 murmurs rubs gallops GI: Other: Soft nontender nondistended with normoactive bowel sounds Back/Spine/Pelvis: Other: No CVA tenderness Extrem: Other: No edema bilaterally Objective Data Active Medications Acetaminophen (Acetaminophen 325 Mg Tablet) 650 mg PO Q6H PRN PRN Reason: Pain, Mild (Pain Scale 1-3) Last Admin: 01/01/22 16:52 Dose: 650 mg Documented by: STEVO Atorvastatin Calcium (Atorvastatin Calcium 10 Mg Tablet) 10 mg PO BEDTIME [facility] Last Admin: 01/03/22 21:17 Dose: 10 mg Documented by: BRINDA Dexamethasone Sodium Phosphate (Dexamethasone Sod Phosphate 4 Mg/Ml Vial) 6 mg IVPUSH DAILY [facility] Stop: 01/11/22 09:01 Last Admin: 01/04/22 08:57 Dose: 6 mg Documented by: MAXIMUS Enoxaparin Sodium (Enoxaparin Sodium 40 Mg/0.4 Ml Syringe) 40 mg SUBCUT Q24H [facility] Last Admin: 01/04/22 14:49 Dose: 40 mg Documented by: MAXIMUS Fentanyl (Fentanyl Citrate/Pf 100 Mcg/2 Ml Vial) 50 mcg IVPUSH Q5M PRN; Protocol PRN Reason: Pain, Severe (Pain Scale 7-10) Hydromorphone HCl (Hydromorphone Hcl 1 Mg/Ml Syringe) 1 mg IVPUSH Q4H PRN; Protocol PRN Reason: severe pain Last Admin: 01/02/22 09:15 Dose: 1 mg Documented by: MELINDA Ceftriaxone Sodium 1 gm/ (Sodium Chloride) 50 mls @ 100 mls/hr IV Q24H [facility] Last Infusion: 01/04/22 11:54 Dose: 0 mls/hr Documented by: MAXIMUS Sodium Chloride (Ns) 1,000 mls @ 100 mls/hr IVCONT .Q10H [facility] Last Admin: 01/04/22 11:54 Dose: 100 mls/hr Documented by: MAXIMUS Remdesivir 100 mg/ Sodium (Chloride) 230 mls @ 115 mls/hr IV Q24H [facility] Stop: 01/06/22 10:59 Ondansetron HCl (Ondansetron Hcl 4 Mg/2 Ml Vial) 4 mg IVPUSH Q8H PRN PRN Reason: Nausea and Vomiting Last Admin: 01/01/22 14:17 Dose: 4 mg Documented by: ELADIO Ondansetron HCl (Ondansetron Hcl 4 Mg/2 Ml Vial) 4 mg IVPUSH ONCE PRN PRN Reason: Nausea and Vomiting Oxycodone HCl (Oxycodone Hcl Immed Release 5 Mg Tablet) 5 mg PO ONCE PRN PRN Reason: Pain, Severe (Pain Scale 7-10) Pharmacy Consult (Consult Rx Perform Med Rec) 1 each MISCELLANE ONCE PRN PRN Reason: Consult order Sodium Chloride (0.9 % Sodium Chloride Flush 3 Ml Syringe) 3 ml IVFLUSH QSHIFT [facility] Last Admin: 01/04/22 08:57 Dose: 3 ml Documented by: MAXIMUS Labs CBC & Chem 7: 01/04/22 06:47 01/04/22 06:47 Labs: Laboratory Results - last 24 hr 01/04/22 01/04/22 06:47 06:47 MCV 98.1 H MCH 32.9 MCHC 33.5 RDW 11.7 Plt Count 190 MPV 10.1 Absolute Nucleated RBC 0.000 Nucleated RBC % (auto) 0.0 Anion Gap 13 Estim Creat Clear Calc 57.7 Estimated GFR > 60 Random Glucose 116 H Calcium 8.6 Total Bilirubin 0.3 AST 13 ALT 11 Alkaline Phosphatase 77 Total Protein 5.2 L Albumin 2.9 L Microbiology Microbiology Results: Microbiology 01/01/22 09:24 Blood Culture - Final Blood - Venous Escherichia coli 01/01/22 09:24 Blood Culture - Preliminary Blood - Venous No growth after 48 hours. Assessment and Plan (1) Acute respiratory failure with hypoxia: Status: Acute (2) Calculus of distal left ureter: Status: Acute (3) COVID-19 virus infection: Status: Acute Plan 71yo F with nephrolithiasis, HTN, presenting with 1 day of L-sided renal colic and found to have pyelonephritis and hydroureteronephrosis associated with a distal left ureteral calculus. incidentally positive for Covid-19 but then developed hypoxia. Stent placed 01/03 by Urology; markedly improved per patient 1.Obstructive ureteral stone/ pyelonephritis - ceftriaxone (3) - E coli ESBL negative. .. Sensitive to ceftriaxone. Will switch to Ceftin upon discharge 2.Covid-19 infection - remdesivir 11/23 -10/28 dexamethasone; switch to oral upon DC - CRP worsening; trend - isolation precautions 3.Acute hypoxic respiratory failure - weaned off O2 4.HTN - add back losartan -adjust as indicated # VTE ppx - LMWH Patient requires continued hospitalization for the following reasons: IV ABX/redesmivir Quality Stroke Does the patient have a stroke diagnosis?: No VTE Prior VTE?: No VTE Risk Level:: Medical - moderate - high VTE Device Contraindication: N/A - Device Ordered VTE Drug Contraindication: N/A - Med Ordered
[2022-01-04 16:00] VITALS: BP 122/61; PULSE 55; RESP 18; TEMP 37.1; O2SAT 94
[2022-01-04] MEDS: Acetaminophen 325 MG TABLET 650 MG PO (20:34)
[2022-01-04] MEDS: Atorvastatin Calcium 10 MG TABLET PO (20:34)
[2022-01-04 23:29] VITALS: BP 186/64; PULSE 46; RESP 18; TEMP 36.7; O2SAT 96
[2022-01-05 00:45] VITALS: PULSE 35
[2022-01-05 01:19] VITALS: BP 187/71; PULSE 41
[2022-01-05] MEDS: hydrALAZINE HCl 20 MG/ML VIAL 5 MG IVPUSH (01:21)
[2022-01-05 01:51] VITALS: BP 136/59; PULSE 46
[2022-01-05 02:54] LABS: Leukocytes Stool Qualitative NEGATIVE (NEGATIVE)
[2022-01-05 03:09] LABS: CDiff Gene PCR NEGATIVE (Negative)
[2022-01-05 04:00] VITALS: BP 147/66; PULSE 43; RESP 17; TEMP 36.3; O2SAT 96
[2022-01-05 07:35] VITALS: BP 160/56; PULSE 48; RESP 18; TEMP 36.5; O2SAT 96
[2022-01-05] MEDS: dexAMETHasone sod phosphate 4 MG/ML VIAL 6 MG IVPUSH (09:38)
[2022-01-05] MEDS: 0.9 % Sodium Chloride 1,000 ML 100 ML IVCONT (09:45)
[2022-01-05] MEDS: cefTRIAXone sodium 1 GM in 0.9 % Sodium Chloride 50 ML IV (09:46)
[2022-01-05] MEDS: 0.9 % Sodium Chloride Flush 3 ML SYRINGE IVFLUSH (09:47)
[2022-01-05] MEDS: Remdesivir 100 MG in 0.9 % Sodium Chloride 230 ML 115 MG IV (11:04)
[2022-01-05 11:16] VITALS: BP 151/64; PULSE 46; RESP 18; TEMP 36.3; O2SAT 97
--- NOTE | 2022-01-05 11:33 | P.DS_ITS ---
DS: Providers Provider Date of Service: 01/05/22 Date of admission: 01/01/22 13:44 Date of discharge: 01/05/22 Primary care physician: Valdemar Slaughter MD Consults: 01/01/22 11:16 Consult to Infectious Diseases Routine Consulting Provider: Tami Rubio Reason for consultation: incidental Covid 01/01/22 13:15 Consult to Urology Routine Consulting Provider: Patric Medina Reason for consultation: obstructing ureterolith DS: Diagnosis Discharge Diagnosis (1) Acute respiratory failure with hypoxia: Status: Acute (2) Calculus of distal left ureter: Status: Acute (3) COVID-19 virus infection: Status: Acute DS: Summary Hospital Course Hospital Course: Ms Nieves is a 71 year-old woman with nephrolithiasis, hypertension, and hyperlipidemia who presents with the sudden-onset of severe left flank pain radiating to the groin associated with nausea and vomiting that started yest erday morning.? She came to the ED and was found to have leukocytosis and tachypnea, along with pyuria, microscopic hematuria, and bacteruria.? CT showed [id number] hydroureteronephrosis on the left associated with a 9 mm distal ureteral stone.? Lactate was 0.9 and serum creatinine was 0.86. She was given IV morphine, IV hydromorphone, and IV ceftriaxone. She passed a small stone 3 months ago after an episode of left-sided renal colic. Routine pre-admission Covid-19 [place] was positive.? She denies fever, rigors, congestion, sore throat, cough, or dyspnea.? No known exposures.? She had the 2- dose primary series and 2 boosters of mRNA Covid-19 vaccine. Hospital Course Time Spent with Patient Time attestation: Total time spent providing and/or coordinating discharge services: Discharge coordination time: Greater than 30 minutes Quality: Safe Use of Opioids Does Pt have an Active Cancer Diagnosis on the Problem List?: No Quality: Stroke Does the patient have a stroke diagnosis?: No Physical Exam Vital Signs: Vital Signs: Last Vital Signs Temp 97.4 F 01/05/22 11:16 Pulse 46 L 01/05/22 11:16 Resp 18 01/05/22 11:16 BP 151/64 H 01/05/22 11:16 Pulse Ox 97 01/05/22 11:16 BMI result Body Mass Index 29.5 Const: Other: Awake alert oriented x3 no acute distress Resp: Other: Clear to auscultation bilaterally no rales rhonchi or wheezes Cardio: Other: No S4; positive S1-S2; no S3 murmurs rubs gallops GI: Other: Soft nontender nondistended with normoactive bowel sounds Back/Spine/Pelvis: Other: No CVA tenderness Extrem: Other: No edema bilaterally DS: Data Data Completed and Pending Pending studies at discharge: Pending at discharge 01/03/22 20:06 Surgical [PTH] Routine Labs on day of discharge: Laboratory Results - last 24 hr 01/05/22 01/05/22 02:10 02:10 Stool Leukocytes, Qual NEGATIVE C. difficile Tox B Gene NEGATIVE Preliminary micro results at discharge 01/01/22 09:24 Blood Culture - Preliminary Blood - Venous No growth after 48 hours. Discharge Plan Discharge Patient Disposition: Home, Self-Care Discharge Diagnosis: Acute respiratory failure with hypoxia Referrals: Valdemar Slaughter MD [Primary Care Provider] - 1 Week Discharge Medications: New cefuroxime axetil 500 mg tablet 500 mg PO BID 10 Days Qty: 20 0RF Continued losartan 50 mg tablet 1 tab PO BID 0RF simvastatin 20 mg tablet 1 tab PO BEDTIME 0RF oxycodone 5 mg tablet 1 tab PO QID PRN (Reason: pain) 0RF Discharge Orders: Discharge Order (Routine); Ordered 01/05/22 Ordered By: Jesse Yusuf Diet: advance to usual diet Activity on Discharge: As tolerated Stand Alone Forms: Patient Portal Discharge page Care Plan Goals: Complete course of Ceftin 500 mg p.o. b.i.d. Health Concerns: Follow up with Dr. Slaughter in 1 week Plan of Treatment: C diff negative . . . If no improvement 1-2 days call for repeat culture and treat Assessment: See discharge summary Discharge Date/Time: 01/05/22 14:00
--- NOTE | 2022-01-05 11:45 | MHC.CM.PN ---
IMM 01/05/22 Female 71 DX Ureterolithiasis Covid+ discharged today to home. Patient has arranged for private transportation home.
[2022-01-07 02:30] LABS: Stone Source KIDNEY STONE
== END 2022-01-05 14:00 | disposition home or self-care (01) | DRG 659 ==
LOC: HO.ED 10:23 → HO.EDOVER 13:55 → HO.S3 01-03 18:53 → HO.IMC 01-03 19:17
PROVIDERS: Hospitalist; Urology; Admitting Provider Family Medicine; Emergency Provider Emergency Medicine; PCP Internal Medicine; Visit Provider Hospitalist
PROC: 0T778DZ Dilation of Left Ureter with Intraluminal Device, Via Natural or Artificial Opening Endoscopic (ICD-10-PCS; principal; 2022-01-03 16:50)
DX: N13.6 Pyonephrosis (principal); U07.1 COVID-19; J96.01 Acute respiratory failure with hypoxia; E78.5 Hyperlipidemia, unspecified; I10 Essential (primary) hypertension; Z87.442 Personal history of urinary calculi; Z88.6 Allergy status to analgesic agent; Z79.899 Other long term (current) drug therapy
CPT/HCPCS: 36415; 74176; 80048; 80053; 81001; 81003; 82365; 82728; 83605; 83615; 84145; 85027; 86140; 87040; 87045; 87046; 87077; 87086; 87186; 87205; 87493; 87635; 88300; 89055; 93005; 96361; 96365; 96375; 99285; C1758; C1769; C1894; C2617; J0248; J0696; J1100; J1170; J1650; J2250; J2270; J2405; J3010; Q9967

== ENCOUNTER → 2022-01-18 08:55 | Outpatient (BNVA) | payer MEDICARE, BC, SELFPAY | PROVIDERS: PCP Internal Medicine; Visit Provider Urology | DX: N20.0 Calculus of kidney (principal) | CPT/HCPCS: 52310; 99212 ==

== ENCOUNTER 2022-04-12 13:19 | Outpatient (REF) | payer MEDICARE, BC, SELFPAY ==
--- NOTE | ~2022-04-12 | US_ITS ---
EXAMINATION: US RETROPERITONEAL LIMITED (RENAL ONLY) CLINICAL INFORMATION: Calculus of kidney. COMPARISON: CT abdomen and pelvis 01/01/2022. Ultrasound abdomen 11/13/2014. X-ray abdomen KUB 12/23/2013. TECHNIQUE: Real-time imaging of the kidneys. FINDINGS: RIGHT KIDNEY: 9.2 x 3.9 x 3.9 cm (SAG x AP x TRV). The kidney is normal in size, contour, and echogenicity. Renal cortical thickness is normal. There is mild hydronephrosis.. Right lower pole renal stone seen by CT December 2021 are not appreciated. LEFT KIDNEY: 9.4 x 4.5 x 4.2 cm (SAG x AP x TRV). The kidney is normal in size, contour, and echogenicity. Renal cortical thickness is normal. There is a 1.6 x 0.3 x 0.9 cm stone in the lower pole. There is mild left hydronephrosis. There is mild dilatation visualized left proximal ureter. No focal parenchymal lesions. ADDITIONAL FINDINGS: Bilateral ureteral jets are identified. US/US renal BI IMPRESSION: Mild bilateral hydronephrosis. Right lower pole renal stones are not appreciated. Left lower pole renal stones.
== END 2022-04-12 13:20 | disposition home or self-care (01) ==
LOC: HO.US 13:19
PROVIDERS: Visit Provider Urology
DX: N20.0 Calculus of kidney (principal)
CPT/HCPCS: 76775

== ENCOUNTER → 2022-04-20 09:05 | Outpatient (BNVA) | payer MEDICARE, BC, SELFPAY | PROVIDERS: PCP Internal Medicine; Visit Provider Urology | DX: N20.0 Calculus of kidney (principal) | CPT/HCPCS: Q3014 ==

== ENCOUNTER 2022-08-11 07:41 | Outpatient (REF) | payer MEDICARE, BC, SELFPAY ==
[2022-08-11 10:45] LABS: MANUAL DIFF FLAG NO
[2022-08-11 10:51] LABS: Basophils Percent Auto 0.2 % (0-2); Eosinophils Absolute Auto 0.1 X10*3/uL (0.0-0.4); Eosinophils Percent Auto 1.7 % (0-4); Hematocrit 41.6 % (37.0-47.0); Hemoglobin 13.8 g/dl (12.0-16.0); Imm Gran Abs Auto 0.01 X10*3/uL (0.00-0.03); Imm Gran Pct Auto 0.2 % (0.0-0.4); Lymphocytes Absolute Auto 2.2 X10*3/uL (1.2-4.9); Lymphocytes Percent Auto 41.3 % (20-40); Mean Corpuscular HGB Conc 33.2 g/dl (31.0-35.0); Mean Corpuscular Hemoglobin 32.5 pg (27.0-33.0); Mean Corpuscular Volume 98.1 fL (80.0-98.0); Monocytes Absolute Auto 0.4 X10*3/uL (0.1-1.2); Neutrophils Absolute Auto 2.6 x10*3/uL (2.0-8.3); Neutrophils Percent Auto 48.6 % (45-73); Platelet Count 191 X10*3/uL (160-400); Red Blood Count 4.24 X10*6/uL (4.20-5.50); Red Cell Distribution Width 11.9 % (11.0-16.0); White Blood Count 5.3 X10*3/uL (4.8-10.8)
[2022-08-11 11:10] LABS: Appearance Urine Cloudy; Color Urine Yellow; Glucose Urine UA Negative (Negative); Leukocyte Esterase Urine Large (3+) (Negative); Nitrite Urine Negative (Negative); PH 5.5 (5.0-9.0); UMIC TRIGGER UA YES; Urine Blood Negative (Negative); Urine Ketones Negative (Negative); Urine Protein Negative (Neg-Trace)
[2022-08-11 11:15] LABS: Bacteria Urine 4+ (None Seen); Hyaline Casts Urine 0-2 /LPF (0-2); RBC Urine 0-2 /HPF (0-2); WBC Urine >50 /HPF (0-5)
[2022-08-11 11:34] LABS: Alanine Aminotransferase 17 U/L (0-31); Alkaline Phosphatase 91 U/L (39-117); Anion Gap 11 (12-20); Aspartate Amino Transferase 19 U/L (5-31); Bilirubin Total 0.5 mg/dL (0.0-1.0); Blood Urea Nitrogen 19 mg/dL (9-16); Calcium 9.1 mg/dL (8.4-10.2); Carbon Dioxide 27 mmol/L (22-29); Chloride 107 mmol/L (96-108); Cholesterol 200 mg/dL; Estimated Glomerular Filt Rate > 60; Glucose Fasting 83 mg/dL (60-99); HDL Cholesterol 54 mg/dL; LDL Cholesterol Calculated 117 mg/dl; Potassium 4.1 mmol/L (3.3-5.1); Sodium 141 mmol/L (135-145); Total Protein 6.1 g/dL (6.5-8.0); Triglycerides 147 mg/dL
== END 2022-08-11 07:42 | disposition home or self-care (01) ==
LOC: HO.10HDL 07:41
PROVIDERS: Visit Provider Internal Medicine
DX: I10 Essential (primary) hypertension (principal); E78.00 Pure hypercholesterolemia, unspecified; N20.0 Calculus of kidney
CPT/HCPCS: 36415; 80053; 80061; 81001; 81003; 85025

== ENCOUNTER → 2022-10-04 15:37 | Outpatient (BNVA) | payer MEDICARE, BC, SELFPAY | PROVIDERS: PCP Internal Medicine; Visit Provider Urology | DX: N39.0 Urinary tract infection, site not specified (principal); N20.0 Calculus of kidney | CPT/HCPCS: Q3014 ==

== ENCOUNTER 2023-03-23 10:31 | Outpatient (REF) | payer MEDICARE, BC, SELFPAY ==
--- NOTE | ~2023-03-23 | US_ITS ---
EXAMINATION: US RETROPERITONEAL LIMITED (RENAL ONLY) CLINICAL INFORMATION: Urinary tract infection, site not specified. COMPARISON: Renal ultrasound 04/12/2022. CT abdomen and pelvis 01/01/2022. Ultrasound abdomen 11/13/2014. X-ray KUB 12/23/2013. TECHNIQUE: Real-time imaging of the kidneys. FINDINGS: RIGHT KIDNEY: 8.9 x 3.8 x 4.0 cm (SAG x AP x TRV). The kidney is normal in size, contour, and echogenicity. Renal cortical thickness is normal. Probable normal variant small extrarenal pelvis. No calculi or suspicious focal parenchymal lesion identified. No hydronephrosis identified as such. LEFT KIDNEY: 9.3 x 4.6 x 4.6 cm (SAG x AP x TRV). The kidney is normal in size, contour, and echogenicity. Renal cortical thickness is normal. Suspect small benign parapelvic simple renal cysts. Probable normal variant small extrarenal pelvis. No suspicious focal parenchymal lesion identified. Approximately 1.5 cm, nonobstructing left lower pole collecting system stone. US/US renal BI IMPRESSION: Approximately 1.5 cm, nonobstructing left lower pole collecting system stone. No hydronephrosis identified as such.
== END 2023-03-23 10:32 | disposition home or self-care (01) ==
LOC: HO.US 10:31
PROVIDERS: PCP Internal Medicine; Visit Provider Urology
DX: N39.0 Urinary tract infection, site not specified (principal)
CPT/HCPCS: 76775

== ENCOUNTER 2023-04-04 10:36 | Outpatient (AMB) | payer MEDICARE, BC, SELFPAY ==
--- NOTE | 2023-04-04 10:42 | A.OFFVIS_ITS ---
Intake Intake Visit Reasons: 6M US/Urinalysis(set) Intake Note: Patient is present for Follow Up Ultrasound/UTI Urology Med: None Antibiotic Allergy: None Blood Thinner: none Pharmacy: [facility] Allergies ibuprofen Allergy (Unknown, Verified 04/04/23 10:46) Unknown Medication List - Last Reconciled 04/04/23 by Patric Medina MD losartan 1 tab PO BID pravastatin 20 mg PO DAILY simvastatin 1 tab PO BEDTIME HPI HPI Comments History of Present Illness Details Megan is a very pleasant female. She is a patient of Dr. Slaughter. She is seen for the following urologic conditions - nephrolithiasis Minimal issues since last visit Ultrasound confirms left renal pelvic stone At this point will continue with surveillance Prior UTI August 2022. Secondary to incomplete bowel emptying. Current management culturelle and Metamucil Nephrolithiasis Presentation december 2021 - Left distal ureteric stone with left renal stone Intervention - 01/09 left ureteroscopy laser lithotripsy for distal stone Imaging - 01/09 CT scan 8mm distal left ureteric stone and renal pelvic stone - buried into tissue - 04/11 US 1.3 cm stone left renal pelvis - 04/12 renal ultrasound left renal pelvic stone stable 1.4cm Stone composition - 01/09 triple phosphate infection stone Therapeutic plan - yearly imaging [facility] Medical History Dyslipidemia Hypertension Nephrolith Surgical History History of removal of ureteral stent History of stapedectomy Family History Father Chronic kidney disease Social History Household Members: Spouse Housing: House Patient Tobacco Use Status: Never used Tobacco service: No Current occupational status: retired Review of Systems Const Denies chills and Denies fever(s) Card Reports no additional complaints and Denies syncope Resp Denies cough GI Denies abdominal pain and Denies heartburn Reports as per HPI and Denies change in libido Neuro Denies syncope Psych Denies change in libido Endo Denies change in libido Physical Exam Const General: cooperative, healthy appearing, comfortable and no acute distress Orientation/consciousness: patient oriented x3 HEENT Face and sinus: Yes normal facial exam Mouth: moist mucous membranes Neck Neck: Yes normal visual inspection, Yes full ROM and Yes trachea midline Chest Chest palpation & inspection: normal inspection of the chest Resp Effort & Inspection: normal respiratory effort, able to speak in complete sentences and no respiratory distress GI Inspection: Yes normal to inspection Back/Spine/Pelvis Cervical Spine: normal cervical lordosis Thoracic/Lumbar Spine: thoracic and lumbar spine normal to inspection Skin General skin exam: no rashes or lesions noted Neuro General: patient oriented x3, gait normal, tone normal and moves all extremities Extrem General: Yes normal to inspection and Yes capillary refill normal Results AMB Urinalysis, Automated UA Leukoctes 70 Marion/uL Last Edit by Earline Monson [facility] on 04/04/23 10:53 UA Nitrite Negative Last Edit by Earline Monson [facility] on 04/04/23 10:53 UA Urobilinogen 0.2 mg/dL Last Edit by Earline Monson [facility] on 04/04/23 10:5 3 UA Protein 0 mg/dL Last Edit by Earline Monson [facility] on 04/04/23 10:53 UA pH 6.5 Last Edit by Earline Monson [facility] on 04/04/23 10:53 UA Blood 0 Yony/uL Last Edit by Earline Monson [facility] on 04/04/23 10:[address] Last Edit by Earline Monson A on 04/04/23 10: 53 UA Ketone Negative Last Edit by Earline Monson [facility] on 04/04/23 10:53 UA Bilirubin 0 mg/dL Last Edit by Earline Monson [facility] on 04/04/23 10:53 UA Glucose 0 mg/dL Last Edit by Earline Monson [facility] on 04/04/23 10:53 Results Reviewed Results Reviewed: Laboratory Last Values Urine pH (Auto) 6.5 04/04/23 10:[address] (Auto) 1.015 04/04/23 10:47 Urine Protein (Auto) 0 mg/dL 04/04/23 10:47 Glucose (UA)(Auto) 0 mg/dL 04/04/23 10:47 Urine Ketones (Auto) Negative 04/04/23 10:47 Urine Blood (Auto) 0 Yony/uL 04/04/23 10:47 Urine Nitrite (Auto) Negative 04/04/23 10:47 Urine Bilirubin (Auto) 0 mg/dL 04/04/23 10:47 Urine Urobilinogen (Auto) 0.2 mg/dL 04/04/23 10:47 Leukocyte Esterase (Auto) 70 Marion/uL 04/04/23 10:47 Assessment & Plan Assessment & Plan (1) Staghorn kidney stones: Comment: December 2021 infection stone left Code(s): N20.0 - Calculus of kidney (2) Recurrent UTI: Code(s): N39.0 - Urinary tract infection, site not specified Plan Twelve month follow-up ultrasound Orders: Orders AMB Urinalysis Automated Today N39.0 - Urinary tract infection, site not specified, Z13.9 - Encounter for screening, unspecified US renal BI 364 Days N20.0 - Calculus of kidney Patient Instructions: Imaging studies, laboratory and physical exam results were discussed and reviewed in detail. No major barriers to patient understanding were identified. An opportunity to ask questions regarding the treatment plan was provided. All questions were answered. The patient expressed understanding and agreement with the above treatment plan. The patient is aware they should contact our office by phone for worsening of their current condition or the appearance of new urologic symptoms. Compliance is encouraged with any medications and followup testing that is ordered. It is a privilege to participate in the urologic care of your patient. If you have any questions or concerns regarding treatment for the above conditions, or other urologic issues, please do not hesitate to contact me. The office telephone contact is [phone]. This note is constructed using voice recognition software. While every effort has been made to ensure accuracy cementer hand errors may have been included. Yours sincerely, Dr Patric Medina MD, [facility] - Urology Providers of Expert, Compassionate Care for the Genitourinary System Coding Level of Care Code Est Pt Level 3 (28530) Diagnoses Staghorn kidney stones N20.0 Recurrent UTI N39.0
== END 2023-04-04 11:02 | disposition home or self-care (01) ==
PROVIDERS: Visit Provider Urology
DX: N20.0 Calculus of kidney (principal); N39.0 Urinary tract infection, site not specified
CPT/HCPCS: 99213

== ENCOUNTER → 2023-04-04 10:36 | Outpatient (BNVA) | payer MEDICARE, BC, SELFPAY | PROVIDERS: Visit Provider Urology | DX: N20.0 Calculus of kidney (principal); N39.0 Urinary tract infection, site not specified | CPT/HCPCS: 99212 ==

== ENCOUNTER 2023-07-11 07:43 | Outpatient (REF) | payer MEDICARE, BC, SELFPAY ==
[2023-07-11 10:32] LABS: MANUAL DIFF FLAG NO
[2023-07-11 10:38] LABS: Basophils Percent Auto 0.3 % (0-2); Eosinophils Absolute Auto 0.1 X10*3/uL (0.0-0.4); Eosinophils Percent Auto 1.7 % (0-4); Hemoglobin 14.2 g/dl (12.0-16.0); Imm Gran Abs Auto 0.01 X10*3/uL (0.00-0.03); Imm Gran Pct Auto 0.1 % (0.0-0.4); Lymphocytes Absolute Auto 2.7 X10*3/uL (1.2-4.9); Lymphocytes Percent Auto 38.3 % (20-40); Mean Corpuscular HGB Conc 34.6 g/dl (31.0-35.0); Mean Corpuscular Hemoglobin 34.5 pg (27.0-33.0); Mean Corpuscular Volume 99.5 fL (80.0-98.0); Mean Platelet Volume 9.8 fL (9.4-12.3); Monocytes Absolute Auto 0.5 X10*3/uL (0.1-1.2); Monocytes Percent Auto 6.7 % (2-11); Neutrophils Absolute Auto 3.7 x10*3/uL (2.0-8.3); Neutrophils Percent Auto 52.9 % (45-73); Platelet Count 209 X10*3/uL (160-400); Red Blood Count 4.12 X10*6/uL (4.20-5.50)
[2023-07-11 10:52] LABS: Alanine Aminotransferase 17 U/L (0-31); Albumin Level 4.2 g/dL (3.5-5.0); Alkaline Phosphatase 100 U/L (39-117); Anion Gap 9 (12-20); Aspartate Amino Transferase 16 U/L (5-31); Bilirubin Total 0.6 mg/dL (0.0-1.0); Blood Urea Nitrogen 21 mg/dL (9-16); Calcium 9.6 mg/dL (8.4-10.2); Carbon Dioxide 28 mmol/L (22-29); Chloride 107 mmol/L (96-108); Cholesterol 232 mg/dL (<200); Estimated Glomerular Filt Rate > 60; Glucose Fasting 95 mg/dL (60-99); HDL Cholesterol 57 mg/dL (>40); LDL Cholesterol Calculated 137 mg/dL (<100); Potassium 3.9 mmol/L (3.3-5.1); Sodium 140 mmol/L (135-145); Triglycerides 191 mg/dL (<150)
== END 2023-07-11 07:44 | disposition home or self-care (01) ==
LOC: HO.10HDL 07:43
PROVIDERS: Visit Provider Internal Medicine
DX: I10 Essential (primary) hypertension (principal); E78.00 Pure hypercholesterolemia, unspecified
CPT/HCPCS: 36415; 80053; 80061; 85025

== ENCOUNTER 2024-03-27 07:49 | Outpatient (REF) | payer MEDICARE, BC, SELFPAY ==
--- NOTE | ~2024-03-27 | US_ITS ---
EXAMINATION: US RETROPERITONEAL LIMITED (RENAL ONLY) CLINICAL INFORMATION: Calculus of kidney. COMPARISON: Renal ultrasound 03/23/2023 and 04/12/2022. CT abdomen and pelvis 01/01/2022. TECHNIQUE: Real-time imaging of the kidneys. Limited visualization due to bowel gas. FINDINGS: RIGHT KIDNEY: 8.8 x 4.1 x 4.0 cm (SAG x AP x TRV). Possible right extrarenal pelvis. No hydronephrosis. No obstructing renal calculi. Renal cortical thickness is normal. Limited visualization. LEFT KIDNEY: 8.8 x 4.8 x 4.7 cm (SAG x AP x TRV). Left renal 1.1 cm lower pole and 0.5 cm midpole calculi. Mild left hydronephrosis. Renal cortical thickness is normal. Limited visualization. US/US renal BI IMPRESSION: 1. Left renal calculi. Mild left hydronephrosis. 2. Possible right extrarenal pelvis.
== END 2024-03-27 07:50 | disposition home or self-care (01) ==
LOC: HO.US 07:49
PROVIDERS: PCP Internal Medicine; Visit Provider Urology
DX: N20.0 Calculus of kidney (principal)
CPT/HCPCS: 76775

== ENCOUNTER 2024-04-02 09:30 | Outpatient (AMB) | payer MEDICARE, BC, SELFPAY ==
--- NOTE | 2024-04-02 09:30 | MHC.OFFVIS ---
Intake Visit Reasons: 1Y Follow Up-Ultrasound(03/27) Intake Note: Patient presents to the office today for a telehealth visit for a 1 year follow up/ultrasound Urology Med: None Antibiotic Allergy: None Blood Thinner: none Allergies ibuprofen Allergy (Unknown, Verified 04/02/24 09:30) Unknown HPI Comments Details: Megan is a very pleasant female. She is a patient of Dr. Slaughter. She is seen for the following urologic conditions - nephrolithiasis Telemedicine Evaluation 15 min Consultation [employer] [place] Video attempted Persistent 1.1 cm stone Recommend ESWL Has home dialysis but not on Monday. Prior UTI August 2022. Secondary to incomplete bowel emptying. Current management culturelle and Metamucil Nephrolithiasis Presentation december 2021 - Left distal ureteric stone with left renal stone Intervention - 01/09 left ureteroscopy laser lithotripsy for distal stone Imaging - 01/09 CT scan 8mm distal left ureteric stone and renal pelvic stone - buried into tissue - 04/11 US 1.3 cm stone left renal pelvis - 04/12 renal ultrasound left renal pelvic stone stable 1.4cm - 04/13 renal ultrasound left pelvic stone 1.1 cm, 0.5 cm Stone composition - 01/09 triple phosphate infection stone Therapeutic plan - yearly imaging [facility] Medical History Dyslipidemia Hypertension Nephrolith Surgical History History of removal of ureteral stent History of stapedectomy Family History Father Chronic kidney disease Social History Household Members: Spouse Housing: House Patient Tobacco Use Status: Never used Tobacco service: No Current occupational status: retired Review of Systems Const All systems reviewed & are unremarkable except as noted in HPI and below Reports no additional complaints Resp Reports no additional complaints GI Reports no additional complaints Reports as per HPI Musc Reports no additional complaints Physical Exam Telemedicine evaluation Appropriate responses Regular breathing rate and rhythm HEENT Head: Yes normal to inspection Ears: hearing grossly normal bilaterally Eyes General: appearance normal, both eyes and all related structures Neck Neck: Yes normal visual inspection Chest Chest palpation & inspection: normal inspection of the chest Resp Effort & Inspection: normal respiratory effort and able to speak in complete sentences Telehealth Telehealth Telehealth Platform: [employer] Location of provider rendering services: practice address Location of patient: address on file Patient Identification confirmed using: Name, : Yes Telehealth method: video Patient verbally consented to treatment: Yes Patient verbally consented to billing insurance company: Yes Patient informed of any privacy concerns related to visit: Yes Minutes spent on Phone/Video with Pt.: 15 Assessment & Plan Assessment & Plan (1) Recurrent UTI: Code(s): N39.0 - Urinary tract infection, site not specified Category: Medical (2) Staghorn kidney stones: Comment: December 2021 infection stone left Code(s): N20.0 - Calculus of kidney Category: Medical Plan Extracorporeal Shock Wave Lithotripsy We discussed the nature of the decision and reasonable alternatives for performing the above surgery. Interventions include chemical dissolution, ESWL, ureteroscopy with laser lithotripsy and stent placement, PCNL. Options such as medical therapy were discussed. The relative uncertainties and benefits related to each alternate procedure were adequately discussed. General surgical risks including, but not limited to, pain, bleeding, infection, myocardial infarction, pulmonary embolus, deep vein thrombosis and cerebrovascular accident which may result in further hospitalization were discussed. Full disclosure of the procedure as well as all major risks, benefits and complications were discussed including but not limited to risks of bleeding, injury to the kidney with hematoma or laura-hematoma, failure to fragments stone, potential for ureteric obstruction from stone passage and need for secondary procedures. There is a small long-term risk of hypertension and a question miguel of diabetes. Success rate of fragmentation and passage is approximately 70- 75%. This is compared to the risks and benefits for ureteroscopy which has a higher success rate but is a more invasive procedure. The success rate of the procedure was discussed. Success of the procedure in the short-term does not necessarily guarantee that long-term success will be maintained. Suitable follow up will need to be maintained. The patient showed understanding of the discussion as well as the typical recovery time, and the outpatient nature of this procedure. Opportunity was given for questions. Repeat-back protocol used to confirm understanding. They wish to proceed with left ESWL Patient Instructions: Imaging studies, laboratory and physical exam results were discussed and reviewed in detail. No major barriers to patient understanding were identified. An opportunity to ask questions regarding the treatment plan was provided. All questions were answered. The patient expressed understanding and agreement with the above treatment plan. The patient is aware they should contact our office by phone for worsening of their current condition or the appearance of new urologic symptoms. Compliance is encouraged with any medications and followup testing that is ordered. It is a privilege to participate in the urologic care of your patient. If you have any questions or concerns regarding treatment for the above conditions, or other urologic issues, please do not hesitate to contact me. The office telephone contact is [phone]. This note is constructed using voice recognition software. While every effort has been made to ensure accuracy vessel scrapper helper errors may have been included. Yours sincerely, Dr Patric Medina MD, [facility] - Urology Providers of Expert, Compassionate Care for the Genitourinary System Coding Level of Care Code Tele Est Pt Level 4 (39510) Diagnoses Recurrent UTI N39.0 Staghorn kidney stones N20.0
== END 2024-04-02 11:10 | disposition home or self-care (01) ==
PROVIDERS: PCP Internal Medicine; Visit Provider Urology
DX: N39.0 Urinary tract infection, site not specified (principal); N20.0 Calculus of kidney
CPT/HCPCS: 99214

== ENCOUNTER → 2024-04-02 09:30 | Outpatient (BNVA) | payer MEDICARE, BC, SELFPAY | PROVIDERS: PCP Internal Medicine; Visit Provider Urology ==

== ENCOUNTER 2025-01-09 09:20 | Outpatient (AMB) | payer MEDICARE, BC, SELFPAY ==
--- NOTE | 2025-01-09 09:21 | A.OFFPC_ITS ---
Vital Signs 01/09/25 09:28 Height 5 ft Weight 153 lb BMI 29.9 BP 128/70 Blood Pressure Location Rt brachial Position Sitting Pulse 56 Pulse Source Pulse Oximeter Temp 98.7 F Temp Source Axillary Pulse Oximetry (%) 96 Oxygen Delivery Method Room Air Intake Visit Reasons: Routine Provider Relations Advocate Required: No Accompanied by: Self / Same As Patient Allergies ibuprofen Allergy (Unknown, Verified 01/09/25 09:21) Unknown Tobacco use date assessed: 01/09/25 Fall risk assessment: No Falls in past year Last assessed Fall Risk: 01/09/25 Dental Screening Dental Screen Date: 01/09/25 Did you have a dental visit in the last 12 months?: No Did you have a dental problem in the last 6 months where you did not have access to dental care?: No HPI HPI Comments History of Present Illness Details Megan is a 74 year old female with a past medical history of hypertension, hyperlipidemia, nephrolithiasis, occasional constipation presenting for follow up CV: On losartan, simvastatin. BP is well controlled. Mammo 03/28/2023 Colonoscopy 08/2014 ROS CONSTITUTIONAL: Denies weight loss, fever and chills. HEENT: Denies changes in vision and hearing. RESPIRATORY: Denies SOB and cough. CV: Denies palpitations and CP GI: Denies abdominal pain, nausea, vomiting and diarrhea. : Denies dysuria and urinary frequency. MSK: Denies new myalgia and joint pain. SKIN: Denies rash and pruritus. NEUROLOGICAL: Denies headache PSYCHIATRIC: Denies recent changes in mood. PHYSICAL EXAM: GENERAL: Alert and oriented x 3. NAD EYES: EOMI. Anicteric. HENT: Moist mucous membranes. No scleral icterus. No cervical lymphadenopathy. LUNGS: Clear to auscultation bilaterally. CARDIOVASCULAR: Regular rate and rhythm. No murmur. No JVD. ABDOMEN: Soft, non-tender +bs EXTREMITIES: No edema. Non-tender. SKIN: No rashes or lesions. Warm. NEUROLOGIC: No focal neurological deficits. CN II-XII grossly intact PSYCHIATRIC: Cooperative. Appropriate mood and affect [facility] Medical History Nephrolith Dyslipidemia Hypertension Surgical History History of colonoscopy (~09/03/14) History of stapedectomy History of removal of ureteral stent Family History Father Chronic kidney disease Mother No problems noted. Father No problems noted. Social History Household Members: Spouse Housing: House Patient Tobacco Use Status: Former Tobacco user e-Cigarette/Vaping Use: Former Use service: No Current occupational status: retired Cognitive needs: No Hearing needs: No Vision needs: Yes (rx glasses) Questionnaire PHQ-9 Over the last 2 weeks, how often have you been bothered by any of the following problems? 1. Little interest or pleasure in doing things: not at all 2. Feeling down, depressed, or hopeless: not at all 3. Trouble falling or staying asleep, or sleeping too much: not at all 4. Feeling tired or having little energy: not at all 5. Poor appetite or overeating: not at all 6. Feeling bad about yourself - or that you are a failure or have let yourself or your family down: not at all 7. Trouble concentrating on things, such as reading the newspaper or watching television: not at all 8. Moving or speaking so slowly that other people could have noticed. Or the opposite - being so fidgety or restless that you have been moving around a lot more than usual: not at all 9. Thoughts that you would be better off or of hurting yourself in some way: not at all Total score: 0 Depression Screening Interpretation: Negative Depression Screening Done: Yes [id number] - PHQ-9 Billing: Yes Source: Developed by Drs. Byron Rodriguez, Charlotte Moe, Dustin Nathan and colleagues, with an educational natacha from [employer]. Thrive Questionnaire Date Thrive assessed: 01/09/25 I am a: Patient Within the past 12 months, did the food you bought not last and you didn't have the money to get more?: Never true Within the past 12 months, did you worry whether your food would run out before you got money to buy more?: Never true Do you have trouble paying for medicines?: No Do you have trouble getting transportation to medical appointments?: No Do you have trouble paying your heating and electricity bill?: No Do you have trouble taking care of your child, family member or friend?: No Do you have trouble with day-to-day activities such as bathing, preparing meals, shopping, managing finances, etc.?: No Are you currently unemployed and looking for a job?: No Are you interested in more education?: No THRIVE Score: 0 AUDIT C Alcohol Use Questionnaire (AUDIT-C) 1. How often do you have a drink containing alcohol?: Monthly or less 2. How many drinks containing alcohol do you have on a typical day when you are drinking?: 1 or 2 3. How often do you have six or more drinks on one occasion?: Less than monthly Total Score: 2 PRINCESS-7 AMB Questionnaire PRINCESS-7 Date PRINCESS - 7 assessed: 01/09/25 Feeling nervous, anxious, or on edge: 0 = Not at all Not being able to stop or control worryin = Not at all Worrying too much about different things: 0 = Not at all Trouble relaxin = Not at all Being so restless that it is hard to sit still: 0 = Not at all Becoming easily annoyed or irritable: 0 = Not at all Feeling afraid as if something awful might happen: 0 = Not at all Total PRINCESS-7 score (0-4 normal; 5-9 mild; 10-14 moderate; 15-21 severe): 0 Source: Developed by Drs. Byron Rodriguez, Charlotte Moe, Dustin Nathan and colleagues, with an educational natacha from [employer]. Physical exam (Primary Care) Vital Signs: Last Vital Signs Temp 98.7 F 01/09/25 09:28 Pulse 56 01/09/25 09:28 BP 128/70 01/09/25 09:28 Pulse Ox 96 01/09/25 09:28 Oxygen Delivery Method Room Air 01/09/25 09:28 BMI result Body Mass Index 29.9 Tobacco/Smoking Status: Tobacco use Status Tobacco use date assessed 01/09/25 01/09/25 09:23 Patient Tobacco Use Status Former Tobacco user 01/09/25 09:33 e-Cigarette/Vaping Use Former Use 01/09/25 09:33 PHQ-9: PHQ-9 Score PHQ-9: Total score 0 01/09/25 09:37 Depression Screening Interpretation: Negative Thrive Assessment: Date of Thrive Assessment Date Thrive assessed 01/09/25 01/09/25 09:23 Coding Level of Care Code New Pt Level 4 (82781) Complex EM visit Add On G2211 Diagnoses Primary hypertension I10 Hypertension type: primary hypertension Dyslipidemia E78.5 Fatigue, unspecified type R53.83 Fatigue type: unspecified Additional Codes PHQ-9 - 77259 - PHQ-9 Billing: Yes ([id number]) Assessment & Plan Assessment & Plan (1) Hypertension: Code(s): I10 - Essential (primary) hypertension Category: Medical Qualifiers: Hypertension type: primary hypertension Qualified Code(s): I10 - Essential (primary) hypertension (2) Dyslipidemia: Code(s): E78.5 - Hyperlipidemia, unspecified Category: Medical (3) Fatigue: Code(s): R53.83 - Other fatigue Category: Medical Qualifiers: Fatigue type: unspecified Qualified Code(s): R53.83 - Other fatigue Plan 74 year old to establish care Past medical, surgical, social reviewed Mammogram ordered Labs ordered Blood pressure is well controlled Orders: Orders TSH reflex Free T4 01/09/25 E78.5 - Hyperlipidemia, unspecified, I10 - Essential (primary) hypertension, R53.83 - Other fatigue, R71.8 - Other abnormality of red blood cells Hemoglobin A1c 01/09/25 E78.5 - Hyperlipidemia, unspecified, I10 - Essential (primary) hypertension, R53.83 - Other fatigue, R71.8 - Other abnormality of red blood cells Vitamin D 25-OH (D2 and D3) 01/09/25 E78.5 - Hyperlipidemia, unspecified, I10 - Essential (primary) hypertension, R53.83 - Other fatigue, R71.8 - Other abnormality of red blood cells MM screening mammo BI 01/09/25 Z12.31 - Encounter for screening mammogram for malignant neoplasm of breast Complete Blood Count Auto Diff 01/09/25 E78.5 - Hyperlipidemia, unspecified, I10 - Essential (primary) hypertension, R53.83 - Other fatigue, R71.8 - Other abnormality of red blood cells Comprehensive Met. Panel 01/09/25 E78.5 - Hyperlipidemia, unspecified, I10 - Essential (primary) hypertension, R53.83 - Other fatigue, R71.8 - Other abnormality of red blood cells Vitamin B12 and Folate 01/09/25 E78.5 - Hyperlipidemia, unspecified, I10 - Essential (primary) hypertension, R53.83 - Other fatigue, R71.8 - Other abnormality of red blood cells Referrals Cologuard Test Z12.11 - Encounter for screening for malignant neoplasm of colon, Z12.12 - Encounter for screening for malignant neoplasm of rectum Medications: Changed From simvastatin 1 tab PO BEDTIME To simvastatin 20 mg PO BEDTIME 90 tabs 3RF
[2025-01-09 09:28] VITALS: BP 128/70; PULSE 56; TEMP 37.1; O2SAT 96; BMI 29.9
== END 2025-01-09 09:48 | disposition home or self-care (01) ==
LOC: HO.HMCHD 09:21
PROVIDERS: PCP Internal Medicine; Visit Provider Internal Medicine
DX: I10 Essential (primary) hypertension (principal); E78.5 Hyperlipidemia, unspecified; R53.83 Other fatigue

== ENCOUNTER → 2025-01-09 09:20 | Outpatient (BNVA) | payer MEDICARE, BC, SELFPAY | PROVIDERS: PCP Internal Medicine; Visit Provider Internal Medicine | DX: Z13.89 Encounter for screening for other disorder (principal) | CPT/HCPCS: 96127; 99202 ==

== ENCOUNTER 2025-01-09 09:53 | Outpatient (REF) | payer MEDICARE, BC, SELFPAY ==
[2025-01-09 13:16] LABS: MANUAL DIFF FLAG NO
[2025-01-09 13:49] LABS: Estimated Average Glucose 100 mg/dL; Hemoglobin A1c % 5.1 % (<6.0); Total Hemoglobin (HGBA1C) 3629.8338 umol/L
[2025-01-09 13:52] LABS: Basophils Percent Auto 0.3 % (0-2); Eosinophils Absolute Auto 0.1 X10*3/uL (0.0-0.4); Eosinophils Percent Auto 1.5 % (0-4); Hematocrit 41.4 % (37.0-47.0); Imm Gran Abs Auto 0.01 X10*3/uL (0.00-0.03); Imm Gran Pct Auto 0.2 % (0.0-0.4); Lymphocytes Absolute Auto 1.8 X10*3/uL (1.2-4.9); Lymphocytes Percent Auto 30.7 % (20-40); Mean Corpuscular HGB Conc 33.8 g/dl (31.0-35.0); Mean Corpuscular Hemoglobin 33.2 pg (27.0-33.0); Mean Corpuscular Volume 98.1 fL (80.0-98.0); Mean Platelet Volume 9.9 fL (9.4-12.3); Monocytes Absolute Auto 0.5 X10*3/uL (0.1-1.2); Monocytes Percent Auto 8.3 % (2-11); Neutrophils Absolute Auto 3.5 x10*3/uL (2.0-8.3); Platelet Count 211 X10*3/uL (160-400); Red Blood Count 4.22 X10*6/uL (4.20-5.50); Red Cell Distribution Width 12.2 % (11.0-16.0); White Blood Count 5.9 X10*3/uL (4.8-10.8)
[2025-01-09 14:00] LABS: Alanine Aminotransferase 22 U/L (0-31); Albumin Level 4.3 g/dL (3.5-5.0); Alkaline Phosphatase 99 U/L (39-117); Anion Gap 12 (12-20); Aspartate Amino Transferase 24 U/L (5-31); Bilirubin Total 0.3 mg/dL (0.0-1.0); Blood Urea Nitrogen 20 mg/dL (9-16); Calcium 9.8 mg/dL (8.4-10.2); Carbon Dioxide 27 mmol/L (22-29); Chloride 107 mmol/L (96-108); Estimated Glomerular Filt Rate 57; Glucose Random 90 mg/dL (60-115); Potassium 4.1 mmol/L (3.3-5.1); Sodium 142 mmol/L (135-145)
[2025-01-09 14:18] LABS: TSH reflex Free T4 2.47 uIU/mL (0.32-4.0)
[2025-01-09 14:27] LABS: Folate 11.7 ng/mL (> or = 4.0); Vitamin B12 340 pg/mL (200-900)
[2025-01-14 16:08] LABS: Vitamin D 25-OH, D2 <4 ng/mL; Vitamin D 25-OH, D3 40 ng/mL; Vitamin D 25-OH, Total 40 ng/mL (30-100)
== END 2025-01-09 09:54 | disposition home or self-care (01) ==
LOC: HO.10HDL 09:53
PROVIDERS: Visit Provider Internal Medicine
DX: I10 Essential (primary) hypertension (principal); E78.5 Hyperlipidemia, unspecified; R53.83 Other fatigue; Z13.1 Encounter for screening for diabetes mellitus; R71.8 Other abnormality of red blood cells; K59.00 Constipation, unspecified; Z87.442 Personal history of urinary calculi
CPT/HCPCS: 36415; 80053; 82306; 82607; 82746; 83036; 84443; 85025; 96127; 99202

== ENCOUNTER 2025-02-19 11:20 | Outpatient (REF) | payer MEDICARE, BC, SELFPAY ==
[2025-02-19 12:23] LABS: Appearance Urine Clear; Glucose Urine UA Negative (Negative); PH 6.0 (5.0-9.0); Specific Gravity - Urine 1.010 (1.005-1.025); UMIC TRIGGER UA YES
== END 2025-02-19 11:21 | disposition home or self-care (01) ==
LOC: HO.LAB 11:20
PROVIDERS: PCP Internal Medicine; Visit Provider Physician Assistant
DX: N39.0 Urinary tract infection, site not specified (principal)
CPT/HCPCS: 81001; 99212

== ENCOUNTER 2025-02-19 11:20 | Outpatient (AMB) | payer MEDICARE, BC, SELFPAY ==
--- NOTE | 2025-02-19 11:22 | MHC.PC.OV ---
Intake Visit Reasons: Urinary tract infection Allergies ibuprofen Allergy (Unknown, Verified 01/09/25 09:21) Unknown Medication List - Last Reconciled 02/19/25 by KEON Cisse cephalexin 500 mg PO BID losartan 50 mg PO BID simvastatin 20 mg PO BEDTIME Tobacco use date assessed: 01/09/25 Dental Screening Dental Screen Date: 01/09/25 HPI HPI Comments History of Present Illness Details 74 year old female with history of htn, hld presents to the office today for evaluation. Reports bilateral low abd pain along with pelvis described as cramping and sharp last week that then resolved but recurred several days ago. It is intermittent. There is occasional nausea but no vomiting. No fevers, chills, dysuria, hematuria, increased urinary freqeuncy or urgency, flank pain, changes in bowel habits or radiation of the pain. Pain is primarily along the left groin. No vaginal discharge or bleeding. Does have history nephrolithiasis. Hx UTI in 2021 with pansensitive e coli. low pubic line cramping with fatigue last week. recurred several days ago. nausea. occ sharp and ttp, L>R. now not present. when walking some discomfort. no injury. no dysuria but pain in abd occurs when peeing. no increased freq or urgency. sub chills, no fevers. hx kidney stones. ROS: General: No fevers, malaise, unintentional weight loss Cardiovascular: No chest pain, palpitations, or leg edema Respiratory: No shortness of breath, wheezing, cough GI: No vomiting, diarrhea, constipation, melena, hematochezia. see hpi : see hpi MSK: No flank pain Neuro: No headaches, weakness, paresthesias Skin: No rashes or lesions EXAM: Constitutional - Awake and Alert, No apparent distress Eyes - PERRL Cardiovascular - S1S2, RRR, No edema Respiratory - Normal lung expansion, Normal respiratory effort, No respiratory distress, CTA bilaterally GI - ttp along the left pelvis and suprapubic area without guarding. BSx4, ND MSK - no cva ttp Extremities - no calf tenderness bilaterally, no swelling Skin - Warm/Dry Neurological - Alert & oriented x3 Psychological - Appropriate affect PFSH Medical History Nephrolith Dyslipidemia Hypertension Surgical History History of colonoscopy (~09/03/14) History of stapedectomy History of removal of ureteral stent Family History Father Chronic kidney disease Mother No problems noted. Father No problems noted. Social History Household Members: Spouse Housing: House Patient Tobacco Use Status: Former Tobacco user e-Cigarette/Vaping Use: Former Use service: No Current occupational status: retired Cognitive needs: No Hearing needs: No Vision needs: Yes (rx glasses) Questionnaire Thrive Questionnaire Date Thrive assessed: 01/09/25 PRINCESS-7 AMB Questionnaire PRINCESS-7 Date PRINCESS - 7 assessed: 01/09/25 Source: Developed by Drs. Byron Rodriguez, Charlotte Moe, Dustin Nathan and colleagues, with an educational natacha from [employer]. Physical exam (Primary Care) Tobacco/Smoking Status: Tobacco use Status Tobacco use date assessed 01/09/25 02/19/25 11:22 Patient Tobacco Use Status Former Tobacco user 02/19/25 11:22 e-Cigarette/Vaping Use Former Use 02/19/25 11:22 Thrive Assessment: Date of Thrive Assessment Date Thrive assessed 01/09/25 02/19/25 11:22 Coding Level of Care Code Est Pt Level 4 (91401) Diagnoses Acute UTI N39.0 Assessment & Plan Assessment & Plan (1) Acute UTI: Code(s): N39.0 - Urinary tract infection, site not specified Category: Medical Plan: UA with 3+ leukocytes, +urinary sediment and 1+ bacteria. Keflex 500mg BID x 5 days ordered. Awaiting final culture results. Plan Follow up as scheduled. Orders: Orders UA and rflx microscopic Today R10.2 - Pelvic and perineal pain Medications: New cephalexin 500 mg PO BID 10 caps 0RF
--- OUTSIDE RECORDS SUMMARY | 2025-02-19 12:07 | XMS_ITS | Patient Health Record ---
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 Name Role Phone Valdemar Slaughter MD Primary Care Provider Byron Cotton [phone] Allergies Allergen (clinical drug ingredient) Drug/Non Drug Allergy documented on EMR Reaction Allergy Type Onset Date Status Sulfa Unknown Drug Allergy Active ibuprofen Ibuprofen Unknown Drug Allergy Active Reason For Referral No Information Medications Medication SIG (Take, Route, Frequency, Duration) Notes Start Date End Date Status Aspirin 325 MG 1 tablet Orally PRN Active Tylenol 325 MG 1 tablet as needed O rally PRN Active Suprep Bowel Prep 1 kit as directed Oral ly as directed for 1 dose 04/15/2014 Active Losartan Potassium 50 MG 1 tablet Orally Once a day Active Simvastatin 20 MG 1 tablet in the even ing Orally Once a day Active Multi Vitamin/Minerals Orally Active Vitamin D 1000 UNIT 1 tablet Orally Once a day Active Problems Problem Type SNOMED Code ICD Code Onset Dates Problem Status W/U Status Risk Notes Problem Screening for colon cancer (V76.51) Active confirmed Problem Long-term current use of aspirin ([id number]) Aspirin long-term use (V58.66) Active confirmed Plan Of Treatment Future Test Test Name Order Date COLONOSCOPY 04/15/2014 Insurance Providers Payer Name Payer Address Payer Phone Subscriber Number Group Number Insured Name Patient Relationship to Insured Coverage Start Date Coverage End Date MEDICARE OF [address] [facility] [place] [place] [id number] Self - patient is the insured [facility] [address] [place], [place] [id number] [employer] Self - patient is the insured Medical (General) History Medical History History ICD Code Screening Colonoscopy 2002 w ith only an inflammatory polyp, sigmoid diverticulosis, and internal hemorrhoids Hypertension Kidney stones-ESWL and cystoscopy Denies MS,DM,CVA,Lung disease,renal dise ase Back pain-spinal stenosis and herniated discs--no surgery planned Hyperlipidemia E.coli UTI in 12/2013 Surgical History Surgery Date(Month/Year) Ear surgery left knee arthroscopy
== END 2025-02-19 11:30 | disposition home or self-care (01) ==
LOC: HO.HMCHD 11:20
PROVIDERS: PCP Internal Medicine; Visit Provider Physician Assistant
DX: N39.0 Urinary tract infection, site not specified (principal)

== ENCOUNTER 2025-06-30 13:26 | Outpatient (REF) | payer MEDICARE, BC, SELFPAY ==
--- NOTE | ~2025-06-30 | XR_ITS ---
EXAMINATION: XR ABDOMEN KUB CLINICAL INDICATION: N20.0 - Calculus of kidney COMPARISON: Correlated to renal ultrasound dated March 27, 2024 demonstrated left-sided nephrolithiasis. Correlated to CT abdomen pelvis dated January 01, 2022 TECHNIQUE: AP view of the abdomen. FINDINGS: 2 mm calcification overlapping the left kidney shadow. There is gas throughout the intestine. Stool in the transverse colon. No intestinal dilatation. No air-fluid levels. 9 mm calcification right upper quadrant abdomen. Multilevel spondylosis, axial skeleton. Trabeculated sclerotic right femoral head neck intertrochanteric region. XR/XR KUB IMPRESSION: Probable nephrolithiasis, left kidney. Cholelithiasis. 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 Electronically signed by: Wili Coronado MD 06/30/2025 02:44 PM [facility]
== END 2025-06-30 13:27 | disposition home or self-care (01) ==
LOC: HO.XRAY 13:26
PROVIDERS: Visit Provider Urology
DX: N20.0 Calculus of kidney (principal); N39.0 Urinary tract infection, site not specified
CPT/HCPCS: 74018

== ENCOUNTER → 2025-06-30 13:31 | Outpatient (BNV) | payer MEDICARE, BC, SELFPAY | PROVIDERS: Visit Provider Radiology Diagnostic Radiology | DX: N20.0 Calculus of kidney (principal); K80.20 Calculus of gallbladder without cholecystitis without obstruction | CPT/HCPCS: 74018 ==

== ENCOUNTER 2025-07-04 14:12 | Outpatient (AMB) | payer MEDICARE, BC, SELFPAY ==
--- NOTE | 2025-07-04 14:44 | MHC.OFFVIS ---
Intake Visit Reasons: H&P/KUB Intake Note: Patient Is Present for H&P/X-Ray Results/UA Urology Med: None Antibiotic Allergy: None Blood Thinner: None Home Companion Required: No Accompanied by: Self / Same As Patient Allergies ibuprofen Allergy (Unknown, Verified 07/04/25 14:48) Unknown HPI Comments Details: Megan is a very pleasant female. She is a patient of Dr. Slaughter. She is seen for the following urologic conditions - nephrolithiasis Persistent 1.1 cm stone Recommend ESWL recently passed Prior UTI August 2022. Secondary to incomplete bowel emptying. Current management culturelle and Metamucil Discussed ESWL left side KUB with stone present Nephrolithiasis Presentation december 2021 - Left distal ureteric stone with left renal stone Intervention - 01/09 left ureteroscopy laser lithotripsy for distal stone Imaging - 01/09 CT scan 8mm distal left ureteric stone and renal pelvic stone - buried into tissue - 04/11 US 1.3 cm stone left renal pelvis - 04/12 renal ultrasound left renal pelvic stone stable 1.4cm - 04/13 renal ultrasound left pelvic stone 1.1 cm, 0.5 cm Stone composition - 01/09 triple phosphate infection stone Therapeutic plan - yearly imaging [facility] Medical History Nephrolith Dyslipidemia Hypertension Surgical History History of colonoscopy (~09/03/14) History of stapedectomy History of removal of ureteral stent Family History Father Chronic kidney disease Mother No problems noted. Father No problems noted. Social History Household Members: Spouse Housing: House Patient Tobacco Use Status: Former Tobacco user e-Cigarette/Vaping Use: Former Use service: No Current occupational status: retired Cognitive needs: No Hearing needs: No Vision needs: Yes (rx glasses) Review of Systems Const Denies chills and Denies fever(s) Card Reports no additional complaints and Denies syncope Resp Denies cough GI Denies abdominal pain and Denies heartburn Reports as per HPI and Denies change in libido Neuro Denies syncope Psych Denies change in libido Endo Denies change in libido Physical Exam Const General: cooperative, healthy appearing, comfortable and no acute distress Orientation/consciousness: patient oriented x3 HEENT Face and sinus: Yes normal facial exam Mouth: moist mucous membranes Neck Neck: Yes normal visual inspection, Yes full ROM and Yes trachea midline Chest Chest palpation & inspection: normal inspection of the chest Resp Effort & Inspection: normal respiratory effort, able to speak in complete sentences and no respiratory distress GI Inspection: Yes normal to inspection Back/Spine/Pelvis Cervical Spine: normal cervical lordosis Thoracic/Lumbar Spine: thoracic and lumbar spine normal to inspection Skin General skin exam: no rashes or lesions noted Neuro General: patient oriented x3, gait normal, tone normal and moves all extremities Extrem General: Yes normal to inspection and Yes capillary refill normal Results AMB Urinalysis, Automated UA Leukoctes 0 Marion/uL Last Edit by Earline Monson [facility] on 07/04/25 14:52 UA Nitrite Negative Last Edit by Earline Monson [facility] on 07/04/25 14:52 UA Urobilinogen 0.2 mg/dL Last Edit by Earline Monson [facility] on 07/04/25 14:52 UA Protein 0 mg/dL Last Edit by Earline Monson [facility] on 07/04/25 14:52 UA pH 5.5 Last Edit by Earline Monson [facility] on 07/04/25 14:52 UA Blood 0 Yony/uL Last Edit by Earline Monson [facility] on 07/04/25 14:52 UA Specific Franklin 1.015 Last Edit by Earline Monson [facility] on 07/04/25 14:52 UA Ketone Negative Last Edit by Earline Monson [facility] on 07/04/25 14:52 UA Bilirubin 0 mg/dL Last Edit by Earline Monson [facility] on 07/04/25 14:52 UA Glucose 0 mg/dL Last Edit by Earline Monson [facility] on 07/04/25 14:52 Results Reviewed Results Reviewed: Laboratory Last Values Urine pH (Auto) 5.5 07/04/25 14:51 Specific Franklin (Auto) 1.015 07/04/25 14:51 Urine Protein (Auto) 0 mg/dL 07/04/25 14:51 Glucose (UA)(Auto) 0 mg/dL 07/04/25 14:51 Urine Ketones (Auto) Negative 07/04/25 14:51 Urine Blood (Auto) 0 Yony/uL 07/04/25 14:51 Urine Nitrite (Auto) Negative 07/04/25 14:51 Urine Bilirubin (Auto) 0 mg/dL 07/04/25 14:51 Urine Urobilinogen (Auto) 0.2 mg/dL 07/04/25 14:51 Leukocyte Esterase (Auto) 0 Marion/uL 07/04/25 14:51 Assessment & Plan Assessment & Plan (1) Staghorn kidney stones: Comment: December 2021 infection stone left Code(s): N20.0 - Calculus of kidney Category: Medical Plan Extracorporeal Shock Wave Lithotripsy We discussed the nature of the decision and reasonable alternatives for performing the above surgery. Interventions include chemical dissolution, ESWL, ureteroscopy with laser lithotripsy and stent placement, PCNL. Options such as medical therapy were discussed. The relative uncertainties and benefits related to each alternate procedure were adequately discussed. General surgical risks including, but not limited to, pain, bleeding, infection, myocardial infarction, pulmonary embolus, deep vein thrombosis and cerebrovascular accident which may result in further hospitalization were discussed. Full disclosure of the procedure as well as all major risks, benefits and complications were discussed including but not limited to risks of bleeding, injury to the kidney with hematoma or laura-hematoma, failure to fragments stone, potential for ureteric obstruction from stone passage and need for secondary procedures. There is a small long-term risk of hypertension and a question miguel of diabetes. Success rate of fragmentation and passage is approximately 70- 75%. This is compared to the risks and benefits for ureteroscopy which has a higher success rate but is a more invasive procedure. The success rate of the procedure was discussed. Success of the procedure in the short-term does not necessarily guarantee that long-term success will be maintained. Suitable follow up will need to be maintained. The patient showed understanding of the discussion as well as the typical recovery time, and the outpatient nature of this procedure. Opportunity was given for questions. Repeat-back protocol used to confirm understanding. They wish to proceed with left ESWL Orders: Orders AMB Urinalysis Automated Today Z13.9 - Encounter for screening, unspecified Patient Instructions: This note is constructed using voice recognition software. While every effort has been made to ensure accuracy conditioner tumbler errors may have been included. Imaging studies, laboratory and physical exam results were discussed and reviewed in detail. No major barriers to patient understanding were identified. An opportunity to ask questions regarding the treatment plan was provided. All questions were answered. The patient expressed understanding and agreement with the above treatment plan. The patient is aware they should contact our office by phone for worsening of their current condition or the appearance of new urologic symptoms. Compliance is encouraged with any medications and followup testing that is ordered. It is a privilege to participate in the urologic care of your patient. If you have any questions or concerns regarding treatment for the above conditions, or other urologic issues, please do not hesitate to contact me. The office telephone contact is [phone]. Sincerely, Dr Patric Medina MD, [facility] - Urology Compassionate Specialist Care for the Genitourinary System Coding Level of Care Code Est Pt Level 4 (52448) Diagnoses Staghorn kidney stones N20.0
== END 2025-07-04 15:08 | disposition home or self-care (01) ==
LOC: HO.HUSH 14:13
PROVIDERS: PCP Internal Medicine; Visit Provider Urology
DX: N20.0 Calculus of kidney (principal); Z13.9 Encounter for screening, unspecified
CPT/HCPCS: 99214

== ENCOUNTER → 2025-07-04 14:12 | Outpatient (BNVA) | payer MEDICARE, BC, SELFPAY | PROVIDERS: PCP Internal Medicine; Visit Provider Urology | DX: N20.0 Calculus of kidney (principal); Z87.891 Personal history of nicotine dependence; Z01.818 Encounter for other preprocedural examination | CPT/HCPCS: 81003; 99212 ==

== ENCOUNTER 2025-07-14 09:59 | Outpatient (AMB) | payer MEDICARE, BC, SELFPAY ==
--- NOTE | 2025-07-14 10:00 | A.OFFPC_ITS ---
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 Accompanied by: Self / Same As Patient Allergies ibuprofen Allergy (Unknown, Verified 07/14/25 10:01) Unknown Medication List - Last Reconciled 07/14/25 by Adolfo Amos MD losartan 50 mg PO BID simvastatin 20 mg PO BEDTIME Tobacco use date assessed: 07/14/25 Fall risk assessment: No Falls in past year Dental Screening Dental Screen Date: 07/14/25 Did you have a dental visit in the last 12 months?: No Did you have a dental problem in the last 6 months where you did not have access to dental care?: No HPI HPI Comments History of Present Illness Details History of Present Illness The patient is a 74 year old individual presenting to [facility]. The patient reports a history of high blood pressure, which is well-controlled with losartan 50 mg twice a day, and high cholesterol managed with simvastatin 20 mg on alternating days. A prior attempt at a higher dose of statin resulted in muscle pains. Last year's lab results showed a total cholesterol of 232. The patient has a known history of embedded kidney stones, specifically a 1.1 cm staghorn calculus, and has an upcoming shockwave procedure scheduled with Dr. Medina. This procedure was postponed from last year as the patient was caring for their spouse. The patient also reports back pain, for which the patient uses Tylenol as needed. The patient's spouse in April, and the patient reports feeling sad, particularly in the evenings when alone. 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 Medical History: - Hypertension - Hypercholesterolemia - Nephrolithiasis, specifically a 1.1 cm staghorn calculus - Back pain - Bereavement following spousal loss in April Surgical History: - Upcoming shockwave lithotripsy for nep hrolithiasis Medications: - Losartan 50 mg twice daily for hyperte nsion. - Simvastatin 20 mg on alternating days for hypercholesterolemia. - Tylenol as needed for back pain. Diagnostic Results: - Labs: Total cholesterol was 232 from l ast year's blood work. - Tests and Diagnostics: Imaging reveals a 1.1 cm staghorn calculus. 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 - Family status: The patient's spouse miki ssed away in April. - Exercise: The patient walks in the [employer] in the mornings and walks their daughter's dog twice a week. - Functional status: Activity level is s ometimes limited by back pain. [facility] Medical History (Updated 07/14/25 @ 10:22 by Adolfo Amos MD) Bereavement Back pain Nephrolith Dyslipidemia Hypertension Surgical History History of colonoscopy (~09/03/14) History of stapedectomy History of removal of ureteral stent Family History (Updated 07/14/25 @ 10:08 by Anna Valencia MA) Father Chronic kidney disease Mother No problems noted. Father No problems noted. Social History Household Members: Spouse Housing: House Patient Tobacco Use Status: Former Tobacco user e-Cigarette/Vaping Use: Former Use service: No Current occupational status: retired Cognitive needs: No Hearing needs: No Vision needs: Yes (rx glasses) Questionnaire PHQ-9 Over the last 2 weeks, how often have you been bothered by any of the following problems? 1. Little interest or pleasure in doing things: not at all 2. Feeling down, depressed, or hopeless: several days (she recently loss her .) 3. Trouble falling or staying asleep, or sleeping too much: not at all 4. Feeling tired or having little energy: not at all 5. Poor appetite or overeating: several days 6. Feeling bad about yourself - or that you are a failure or have let yourself or your family down: not at all 7. Trouble concentrating on things, such as reading the newspaper or watching television: not at all 8. Moving or speaking so slowly that other people could have noticed. Or the opposite - being so fidgety or restless that you have been moving around a lot more than usual: not at all 9. Thoughts that you would be better off or of hurting yourself in some way: not at all Total score: 2 Source: Developed by Drs. Byron Rodriguez, Charlotte Moe, Dustin Nathan and colleagues, with an educational natacha from [employer]. Thrive Questionnaire Date Thrive assessed: 07/14/25 I am a: Patient Within the past 12 months, did the food you bought not last and you didn't have the money to get more?: Never true Within the past 12 months, did you worry whether your food would run out before you got money to buy more?: Never true Do you have trouble paying for medicines?: No Do you have trouble getting transportation to medical appointments?: No Do you have trouble paying your heating and electricity bill?: No Do you have trouble taking care of your child, family member or friend?: No Do you have trouble with day-to-day activities such as bathing, preparing meals, shopping, managing finances, etc.?: No Are you currently unemployed and looking for a job?: No Are you interested in more education?: No THRIVE Score: 0 AUDIT C Alcohol Use Questionnaire (AUDIT-C) 1. How often do you have a drink containing alcohol?: Monthly or less 2. How many drinks containing alcohol do you have on a typical day when you are drinking?: 1 or 2 3. How often do you have six or more drinks on one occasion?: Never Total Score: 1 PRINCESS-7 AMB Questionnaire PRINCESS-7 Date PRINCESS - 7 assessed: 07/14/25 Feeling nervous, anxious, or on edge: 0 = Not at all Not being able to stop or control worryin = Not at all Worrying too much about different things: 0 = Not at all Trouble relaxin = Not at all Being so restless that it is hard to sit still: 0 = Not at all Becoming easily annoyed or irritable: 0 = Not at all Feeling afraid as if something awful might happen: 0 = Not at all Total PRINCESS-7 score (0-4 normal; 5-9 mild; 10-14 moderate; 15-21 severe): 0 Source: Developed by Charlotte Bunn Kurt Kroenke and colleagues, with an educational natacha from [employer]. Review of Systems Narrative Review of Systems - Psychiatric: Reports feeling sad, particularly in the evenings, following the recent loss of a spouse. - Gastrointestinal: Reports normal bowel function, denies nausea or vomiting. - Genitourinary: Reports normal urination. - Cardiovascular: Denies chest pain. - Musculoskeletal: Reports back pain and nonspecific joint pains. All systems reviewed & are unremarkable except as reviewed in HPI and above Physical exam (Primary Care) Vital Signs: Last Vital Signs Temp 97.6 F 07/14/25 10:05 Pulse 59 07/14/25 10:05 BP 126/74 07/14/25 10:05 Pulse Ox 96 07/14/25 10:05 Oxygen Delivery Method Room Air 07/14/25 10:05 BMI result Body Mass Index 30.5 Tobacco/Smoking Status: Tobacco use Status Tobacco use date assessed 07/14/25 07/14/25 10:09 Patient Tobacco Use Status Former Tobacco user 07/14/25 10:09 e-Cigarette/Vaping Use Former Use 07/14/25 10:09 PHQ-9: PHQ-9 Score PHQ-9: Total score 2 07/14/25 10:09 Thrive Assessment: Date of Thrive Assessment Date Thrive assessed 07/14/25 07/14/25 10:09 Narrative Physical Exam General: +Alert and oriented, Well nourished, No acute distress. Eye: Pupils are equal, round and reactive to light, Intact accommodation, Extraocular movements are intact, Normal conjunctiva, Vision unchanged. HENT: Normocephalic, Atraumatic, Tympanic membranes are clear, Normal hearing, Oral mucosa is moist, No pharyngeal erythema, Ear canals patent. Respiratory: Lungs CTA bilaterally, No wheeze, Respirations are non-labored. Cardiovascular: Regular rate, Regular rhythm, S1 auscultated, S2 auscultated, No murmur, Good pulses equal in all extremities, Normal peripheral perfusion, No edema. Gastrointestinal: Soft, Non-tender, Non-distended, Normal bowel sounds, No organomegaly. Musculoskeletal: Normal range of motion, Normal strength, No tenderness, No swelling, No deformity, Normal gait. Reports back pain, uses Tylenol as needed. Integumentary: Warm, Dry, [place], Intact. Neurologic: Alert, Oriented, Normal sensory, Normal motor function, No focal defects, Cranial Nerves II-XII are grossly intact, Normal deep tendon reflexes. Psychiatric: Cooperative, Appropriate mood & affect, Normal judgment. Coding Level of Care Code Est Pt Level 4 (01872) Complex visit Add On G2211 Diagnoses Primary hypertension I10 Hypertension type: primary hypertension Dyslipidemia E78.5 Staghorn kidney stones N20.0 Chronic low back pain, unspecified back pain laterality, unspecified whether sciatica present M54.50; G89.29 Back pain location: low back pain Chronicity: chronic Back pain laterality: unspecified Sciatica presence: unspecified whether sciatica present Bereavement Z63.4 Assessment & Plan Assessment & Plan (1) Hypertension: Comment: - The patient's cholesterol was 232 last year. - The plan is to continue simvastatin 20 mg on alternating days and repeat blood work in 6 months. - If cholesterol levels remain elevated, will consider switching to a newer statin with fewer muscle-related side effects, which the patient has previously experienced on higher doses. Code(s): I10 - Essential (primary) hypertension Category: Medical Qualifiers: Hypertension type: primary hypertension Qualified Code(s): I10 - Essential (primary) hypertension (2) Dyslipidemia: Comment: - Blood pressure is stable and well-controlled. - Continue losartan 50 mg twice daily. Code(s): E78.5 - Hyperlipidemia, unspecified Category: Medical (3) Staghorn kidney stones: Comment: - The patient has a 1.1 cm staghorn calculus and is scheduled for a shockwave procedure in July - Preoperative clearance is not deemed necessary at this time but will be provided if the specialist requests it (Can be done over the phone). Code(s): N20.0 - Calculus of kidney Category: Medical (4) Back pain: Comment: - Manage with Tylenol as needed. - The patient is encouraged to increase physical activity to help manage the pain. - If symptoms worsen, imaging will be considered. Code(s): M54.9 - Dorsalgia, unspecified Category: Medical Qualifiers: Back pain location: low back pain Chronicity: chronic Back pain laterality: unspecified Sciatica presence: unspecified whether sciatica present Qualified Code(s): M54.50 - Low back pain, unspecified; G89.29 - Other chronic pain (5) Bereavement: Comment: - Acknowledged the patient's recent loss and sadness, providing support and encouraging the patient to stay active. Code(s): Z63.4 - Disappearance and of family member Category: Social Hx Plan: Health Maintenance: - The patient is encouraged to increase physical activity to manage back pain and maintain overall health. - A follow-up visit is scheduled in 6 months for an annual physical. - Orders for blood work, including a lipid panel, will be placed to be completed 1-2 weeks before the next appointment. Patient was informed and verbally consented to the use of an ambient scribe for clinic note documentation during this visit. Plan I established care with the patient as the new primary care provider. We discussed that the patient's overall health is very good. We reviewed the current medication regimen for hypertension and hypercholesterolemia, agreeing to continue Losartan and the alternating schedule of Simvastatin due to a history of myalgias on higher doses. I explained the plan to re-evaluate cholesterol levels in six months and the option to switch to a newer statin if necessary. I also addressed the upcoming urology procedure for a kidney stone, informing the patient that a formal preoperative clearance is likely not needed from my end but can be provided if requested. I encouraged the patient to increase physical activity to manage back pain. Finally, I acknowledged the patient's recent bereavement, offered my condolences and support, and scheduled a follow-up in six months for an annual physical with preceding lab work. Orders: Orders Comprehensive Met. Panel 6 Months Z00.00 - Encounter for general adult medical examination without abnormal findings Lipid Panel 6 Months Z00.00 - Encounter for general adult medical examination without abnormal findings Syphilis Screen 6 Months Z00.00 - Encounter for general adult medical examination without abnormal findings Complete Blood Count Auto Diff 6 Months Z00.00 - Encounter for general adult medical examination without abnormal findings Hemoglobin A1c 6 Months Z00.00 - Encounter for general adult medical examination without abnormal findings Hepatitis A,B,C Profile 6 Months Z00.00 - Encounter for general adult medical examination without abnormal findings HIV Ab/Ag 6 Months Z00.00 - Encounter for general adult medical examination without abnormal findings Microalbumin, Random (w Creat) 6 Months Z00.00 - Encounter for general adult medical examination without abnormal findings TSH reflex Free T4 6 Months Z00.00 - Encounter for general adult medical examination without abnormal findings Vitamin D 25-OH Total 6 Months Z00.00 - Encounter for general adult medical examination without abnormal findings Patient Instructions: - Continue taking your current medications as prescribed, including Losartan 50 mg twice daily and Simvastatin 20 mg on alternating days. - You may use Tylenol as needed for your back pain. - Try to increase your daily activity, as this can help with your back pain. - Please get your blood work done about one week before your next appointment. - We will see you back in the office in about six months for your annual p hysical. - If the specialist performing your kidney stone procedure requires a pre-op clearance, please have their office contact us. - Please do not hesitate to contact our office if you need anything before your next visit.
[2025-07-14 10:05] VITALS: BP 126/74; PULSE 59; TEMP 36.4; O2SAT 96; BMI 30.5
== END 2025-07-14 10:18 | disposition home or self-care (01) ==
LOC: HO.HMCHD 09:59
PROVIDERS: PCP Student in an Organized Health Care Education/Training Program; Visit Provider Student in an Organized Health Care Education/Training Program
DX: I10 Essential (primary) hypertension (principal); E78.5 Hyperlipidemia, unspecified; N20.0 Calculus of kidney; M54.50 Low back pain, unspecified; G89.29 Other chronic pain; Z63.4 Disappearance and death of family member

== ENCOUNTER → 2025-07-14 09:59 | Outpatient (BNVA) | payer MEDICARE, BC, SELFPAY | PROVIDERS: Visit Provider Student in an Organized Health Care Education/Training Program | DX: I10 Essential (primary) hypertension (principal); E78.5 Hyperlipidemia, unspecified; N20.0 Calculus of kidney; M54.50 Low back pain, unspecified; G89.29 Other chronic pain; Z63.4 Disappearance and death of family member; Z13.30 Encounter for screening examination for mental health and behavioral disorders, unspecified | CPT/HCPCS: 96127; 99212 ==

== ENCOUNTER 2025-08-06 05:54 | Day surgery (SDC) | payer MEDICARE, BC, SELFPAY ==
[2025-08-04 08:25] VITALS: BMI 30.5
--- NOTE | 2025-08-04 09:43 | P.CONAN_ITS ---
Documented by User: Vanessa Brown NP 08/04/25 09:44 HPI - Anesthesia Eval Consult details Narrative: 74 yr old female for left Lithotripsy ESW PMFSH Active Problems Active Problems: All Active Problems (Updated 07/14/25 @ 10:22 by Adolfo Amos MD) Bereavement (Acute) Back pain (Acute) Acute UTI (Acute) Pain in female pelvis (Acute) Elevated MCV (Acute) Fatigue (Acute) Hypertension (Acute) Dyslipidemia (Acute) Recurrent UTI (Acute) Staghorn kidney stones (Acute) Past Medical History Medical History Bereavement Back pain Nephrolith Dyslipidemia Hypertension Family History Family History Father Chronic kidney disease Mother No problems noted. Father No problems noted. Family history of problems with anesthesia: No Surgical History Surgical History History of colonoscopy (~09/03/14) History of stapedectomy History of removal of ureteral stent History of Problems with Anesthesia: No Social History Social History Household Members: Spouse Housing: House Are you a primary attending ambulatory care to a significant other at home: No Do you presently have visiting nurse or other home services: No Patient Tobacco Use Status: Former Tobacco user e-Cigarette/Vaping Use: Former Use Second Hand Smoke Exposure: No Use of substances other than those prescribed or required for medical reasons: No Have you been hit, kicked, punched, or otherwise hurt by someone within the past year? If so, by whom?: No Are you DNR?: No Advance Directives: No Advance Directives Information Provided: Yes Advance Directives on File: No Patient : No : No service: No Current occupational status: retired Cognitive needs: No Hearing needs: No Vision needs: Yes (rx glasses) Meds Allergies Allergy/AdvReac Type Severity Reaction Status Date / Time ibuprofen Allergy Unknown Unknown Verified 07/14/25 10:01 Exam Height,Weight and Vital Signs: Height 5 ft Weight 70.76 kg Assessment and Plan Final Anesthetic Review Family History of Problems with Anesthesia: No History of Problems with Anesthesia: No Documented by User: Nas Monroy MD 08/06/25 07:30 PMFSH Past Medical History Medical History Bereavement Back pain Nephrolith Dyslipidemia Hypertension Family History Family History Father Chronic kidney disease Mother No problems noted. Father No problems noted. Surgical History Surgical History History of colonoscopy (~09/03/14) History of stapedectomy History of removal of ureteral stent Social History Social History Household Members: Spouse Housing: House Are you a primary attending ambulatory care to a significant other at home: No Do you presently have visiting nurse or other home services: No Patient Tobacco Use Status: Former Tobacco user e-Cigarette/Vaping Use: Former Use Second Hand Smoke Exposure: No Use of substances other than those prescribed or required for medical reasons: No Have you been hit, kicked, punched, or otherwise hurt by someone within the past year? If so, by whom?: No Are you DNR?: No Advance Directives: No Advance Directives Information Provided: Yes Advance Directives on File: No Patient : No : No service: No Current occupational status: retired Cognitive needs: No Hearing needs: No Vision needs: Yes (rx glasses) Meds Allergies Allergy/AdvReac Type Severity Reaction Status Date / Time ibuprofen Allergy Unknown Unknown Verified 07/14/25 10:01 Exam Exam Date and Time: 08/06/25 Airway Mallampati Class: II TM Dist: >3cm Neck ROM: Full Denture: Upper and Lower Heart: rrr Lungs: ctab vesicular Assessment and Plan Assessment Anesthesia Assessment: Anesthesia Plan Discussed and Chart Reviewed Final Anesthetic Review NPO: Yes ASA Class: II Final Preanesthetic Review: No Changes in Pt Med Stat, Meds/Allgs Chart Reviewed and Consent Obtained/Reviewed Patient Risk: Low Procedure Risk: Low Anesthetic Plan Anesthetic Plan: MAC: Disposition: Standard PACU
--- NOTE | ~2025-08-06 | XR_ITS ---
CLINICAL HISTORY: kidney stone- left 1 view abdomen Comparison: None provided Findings: No pneumoperitoneum or pneumatosis. Moderate stool burden. Phleboliths are present in the pelvis. A probable 2 mm left renal stone is present. No right renal stones. No acute fractures. IMPRESSION: Probable left renal stone measures 2 mm. Normal bowel gas pattern. Moderate stool burden. This document has been electronically signed by: Alan Britt MD on 08/06/2025 06:50:11
[2025-08-06 06:50] VITALS: BP 154/63; PULSE 63; RESP 16; TEMP 36.9; O2SAT 95
[2025-08-06] MEDS: Lactated Ringers 1,000 ML 100 ML IVCONT (06:57)
--- NOTE | 2025-08-06 07:40 | MHC.SHP ---
Pre-Procedural Eval Section A - 24 Hr Update-Section A only Date of Service: 08/06/25 The patient is an INPATIENT: No Changes since office visit: No Cold of Flu in the past 2 weeks, No New Medical Problems, No Changes in Medication and No Patient answered all questions The patient has been examined within 24 hours of the surgical procedure. The History & Physical has been completed within 30 days and I have reviewed it.: No Section B - Complete if H&P > 30 days Chief Complaint: Left renal stone Details of Present Illness: Left renal stone Relevant Family History (Specify if Yes): No Relevant Social History: None Present Medications: see Short Stay Collaborative assessment Medical History: No relevant PMH History of Previous Operations: No relevant previous surgery Allergies: Allergies Allergy/AdvReac Type Severity Reaction Status Date / Time ibuprofen Allergy Unknown Unknown Verified 07/14/25 10:01 Review of Systems Sugical H&P ROS: Negative: Constitution, Cardiovascular, Respiratory, Neurological, Psychiatric, Hem-Onc, Allergic/Immunologic, Gastrointestinal, Genitourinary, Musculoskeletal, Integumentary, Endocrine and Eyes/Ears/Nose/Throat Exam Surgical H&P Exam: Normal: HEENT, Normal: Heart, Normal: Lungs, Normal: Extremities, Normal: Abdomen, Normal: Skin and Normal: Neurological Plan Diagnosis/Plan: Unchanged (Left ESWL) I have reviewed the history and physical and performed a pertinent physical examination on my patient. No changes have occurred unless specified. Time Spent With Patient Time: Total time managing care of this patient today ____ minutes.
--- NOTE | 2025-08-06 08:09 | P.OP_ITS ---
Operative Note Operative Note Date of Service: 08/06/25 Narrative: PreOperative Diagnosis: Left Renal stones Post Operative Diagnosis: Left Renal stones Procedure: Left ESWL Surgeon: Dr Patric Medina Anesthesia: mac/sedation Indications for procedure: The patient understands ESWL may be a staged procedure and subsequent intervention may be required based on imaging after ESWL. Quoted stone clearance rates for a solitary procedure are in the 70-80% range based primarily on stone location. They also understand there is a risk of bleeding to the kidney, infection, damage to adjacent organs, and stone migration following the procedure. - Imaging - left 1.1 cm mid pole stone Procedure optimization has been performed with IV acetaminophen given in the holding area and 1 L of lactated Ringer's to be given in order to optimize the fluid-stone interface. 20 mg of IV Lasix will be given in the last 5 minutes of the procedure to optimize stone clearance. Procedure: After informed consent was verified the patient was brought to the operating room and placed in a supine position. Anesthesia was performed per protocol. Safety pause time-out was performed. Imaging was displayed in the room and laterality confirmed. ESWL was performed. The 1st 500 shocks were performed at 60 hertz. These were performed with increasing power. Once maximum power was reached the rate was increased to 180 hertz. A total of 2500 shocks were given. Targeted imaging with ultrasound/fluoroscopy showed stone smudging suggestive of disintegration. Patent fragmentation suggested stone unlikely to be calcium oxalate monohydrate. The patient tolerated the procedure well and was transferred to the recovery a tamera upon completion. Post procedure imaging will be organized. There was no evidence for flank discoloration.
[2025-08-06 08:20] VITALS: BP 138/63; PULSE 80; RESP 10; TEMP 36.4; O2SAT 93
[2025-08-06 08:25] VITALS: BP 136/63; PULSE 80; RESP 12; O2SAT 92
[2025-08-06 08:30] VITALS: BP 144/63; PULSE 88; RESP 18; O2SAT 94
[2025-08-06 08:35] VITALS: BP 146/68; PULSE 73; RESP 16; O2SAT 92
[2025-08-06 08:50] VITALS: BP 155/71; PULSE 86; RESP 18; TEMP 36.4; O2SAT 97
== END 2025-08-06 09:31 | disposition home or self-care (01) ==
PROVIDERS: Visit Provider Urology
PROC: (CPT 50590; principal; 2025-08-06 07:30)
DX: N20.0 Calculus of kidney (principal); Z87.442 Personal history of urinary calculi; I10 Essential (primary) hypertension; E78.5 Hyperlipidemia, unspecified; Z79.899 Other long term (current) drug therapy; Z88.6 Allergy status to analgesic agent; Z87.891 Personal history of nicotine dependence
CPT/HCPCS: 50590; 74018; J0131; J1596; J2003; J2250; J2405; J2704; J3010

== ENCOUNTER → 2025-08-06 05:54 | Outpatient (BNV) | payer MEDICARE, BC, SELFPAY | PROVIDERS: Visit Provider Urology | DX: N20.0 Calculus of kidney (principal) | CPT/HCPCS: 50590 ==